=== PATIENT | female | born 1995 | race Caucasian/White ===

== ENCOUNTER 2020-05-14 19:12 | Inpatient (IN) | payer BC, OTHER ==
[~2020-05-14] VITALS: Ht 157.5 cm; Wt 85.4 kg
[2020-05-14] MEDS ORDERED: PENICILLIN G POTASSIUM IV 5 MU in D5W MINI-BAG PLUS 100 ML IV ONE (19:30)
[2020-05-14 20:25] LABS: HEMATOCRIT 36.1 % (36.0-47.0); HEMOGLOBIN 11.6 g/dl (12.0-15.5); MEAN CORPUSCULAR HEMOGLOBIN 30.7 pg (27.0-33.0); MEAN CORPUSCULAR HGB CONC 32.1 g/dl (32.0-36.5); MEAN CORPUSCULAR VOLUME 95.5 fl (80.0-96.0); PLATELET COUNT, AUTOMATED 294 10^3/uL (150-450); RED BLOOD COUNT 3.78 10^6/uL (4.00-5.40); WHITE BLOOD COUNT 14.5 10^3/uL (4.0-10.0)
[2020-05-14] MEDS ORDERED: OXYTOCIN DRIP 30 UNITS in IV 1 EA IV SCH (20:45)
[2020-05-14] MEDS ORDERED: OXYTOCIN 30 UNITS IN 0.9% NaCl 500ML IV BAG (J2590) As Ordered ONE (20:52)
[2020-05-14] MEDS: LR 1,000 ML IV SCH (21:02)
[2020-05-14] MEDS ORDERED: PRENTAB9 PO (21:22)
[2020-05-14] MEDS ORDERED: DICL10TA PO (21:23)
[2020-05-15] VITALS (84 sets, daily range): BP systolic 97–146; BP diastolic 54–100
[2020-05-15] MEDS ORDERED: FENTANYL 2MCG/ML ROPIVACAINE 0.2% IN 0.9% NACL 100ML IVBAG As Ordered ONE (00:19)
[2020-05-15] MEDS ORDERED: EPIDURAL/PCA KEYS XX PRN (01:10)
[2020-05-15] MEDS ORDERED: NALOXONE INJ 0.4MG/1ML VIAL (J2310 PER 1MG) IV PRN (01:10)
[2020-05-15] MEDS ORDERED: EPIDURAL COMMENT XX SCH (01:10)
[2020-05-15] MEDS ORDERED: ONDANSETRON 4MG/2ML VIAL IV PRN (01:10)
[2020-05-15] MEDS ORDERED: ePHEDrine SULFATE 25 MG/5 ML(5MG/ML) SYRINGE IV PRN (01:10)
[2020-05-15] MEDS: FENTANYL/ROPIVACAINE/NACL BAG 100 ML EPIDURAL SCH ×3 (01:10→21:10)
[2020-05-15] MEDS ORDERED: diphenhydrAMINE 50MG/ML VIAL (J1200) IV PRN (01:10)
[2020-05-15] MEDS ORDERED: REFRIGERATOR IV KEYS XX PRN (01:10)
[2020-05-15] MEDS ORDERED: LACTATED RINGER'S 1000 ML IV PRN (01:10)
[2020-05-15] MEDS: PENICILLIN G POTASSIUM IV 2.5 MU in IV 1 EA IV SCH ×5 (01:38→17:10)
[2020-05-15] MEDS: LR 1,000 ML IV SCH ×3 (07:18→15:38)
--- NOTE | 2020-05-15 08:46 | HPE ---
HISTORY AND PHYSICAL DATE OF ADMISSION: 05/14/2020 Chinedu is a 25-year-old, 1, para 0, 34-6/7 weeks, estimated date of confinement of 06/19/2020 by last menstrual period and confirmed by first trimester ultrasound. She presents to labor and delivery today via ambulance from [facility] as a maternal transfer due to premature rupture of membranes. She reports that her water broke at approximately 0600 hours and she presented to [facility] at about 1115 hours. She arrived at [facility] approximately at 1920 hours. She does report some scant bloody show, some mild cramping, and continued leakage, the fetus has been active. Her care was initiated at [facility]. Her care was initiated in the first trimester and has been uncomplicated until today's presentation. OBSTETRIC HISTORY: Primigravida. OBSTRETRIC LABORATORY DATA: A positive, antibody screen negative, syphilis negative, HIV negative, hepatitis B surface antigen negative, hepatitis C antibody nonreactive, gonorrhea and chlamydia negative. Gestational diabetic screening normal at 60. GBS is unknown. Toxoplasmosis negative. Urine drug screen negative. Pap abnormal low-grade squamous intraepithelial lesion. Panorama low risk for aneuploidy. Female fetus. PAST MEDICAL HISTORY: Abnormal pap smear. SURGERY: Left anterior cruciate ligament (ACL) repair times two. FAMILY HISTORY: Ovarian cancer, breast cancer, uterine cancer. SOCIAL HISTORY: The patient is , her is at bedside and supportive. She is a nonsmoker. She denies alcohol and drug use. Denies any history of sexually transmitted infections and denies history of abuse; physical, sexual, and emotional. ALLERGIES: No known drug allergies. CURRENT MEDICATIONS: - Diclegis OBJECTIVE: Temperature 98.3, pulse 83, respirations 18, blood pressure is 126/80. She is alert and oriented times three. She is in no apparent distress, she is smiling and talkative. Her abdomen is gravid. Cephalic presentation. Estimated weight 4 1/2 pounds. heart rate is 130 with moderate variability, positive accelerations, negative decelerations with an occasional contraction palpate mild. Sterile speculum exam: Grossly ruptured, positive nitrazine, positive fern. Sterile vaginal exam: 1 cm dilated, 70% effaced, ballotable station, a four bag of membranes is palpated, and scant bloody show with the exam. ASSESSMENT: Intrauterine at 34-6/7 weeks. heart rate is category 1. Pre-term premature rupture of membranes. PLAN: Per consult with Dr. Aris Sunshine, admit patient to labor and delivery, routine laboratories, start antibiotics for group B Streptococcus (GBS) prophylaxis, start IV Pitocin for labor induction. She has been administered one dose of betamethasone 12 mg at [facility] at approximately 1515 hours. I did review risks, benefits, and alternatives with the patient, all of her and her 's questions have been answered. She has been verbally consented for emergency surgery and blood products if they are necessary. I do anticipate labor and a spontaneous vaginal delivery.
--- NOTE | 2020-05-15 11:28 | IPNPDOC ---
Text Note Date of Service The patient was seen on 05/15/20. NOTE Intrapartum Note Chinedu is a 25yo with SIUP at 35wk admitted for PPROM, clear, at 0600 yesterday 05/14. I assumed her care at 0730 this morning. She was transferred to us from [place] for PPROM. When she presented there, she had positive testing for ROM and was 1/thick/high. She had repeat testing for ROM on arrival here yesterday evening and was positive, so was started on pitocin and at that point was 2/90/-2, ballottable. She received epidural, is currently comfortable. She has mostly had a Cat I FHRT, but did have a couple of shallow prolonged FHR decels around 0500 this morning that recovered with minimal intervention. Her PMhx is uncomplicated. Vitals wnl, afebrile SCE: 3/80/-2, forebag ruptured with a large amount of clear fluid noted and IUPC placed With rupture of forebag, there was a FHR decel down to 90 that recovered with repositioning. FSE placed. Plan to continue to closely observe Will titrate pitocin up to adequate MVUs as tolerated by the fetus Continue PCN per protocol for GBS unknown with PPROM Consider amnioinfusion if indicated Safe to proceed MD JOSE Rivas Fishbone I+Lesly [place] I+Stephen Laboratory Tests 05/14/20 20:00 Vital Signs Date Time Temp Pulse Resp B/P (MAP) Pulse Ox O2 Delivery O2 Flow Rate FiO2 05/15/20 08:38 64 115/68 (84) 05/15/20 07:08 97.7 16 Aimee Mabry MD May 15, 2020 11:28
--- NOTE | 2020-05-15 13:17 | IPNPDOC ---
Text Note Date of Service The patient was seen on 05/15/20. NOTE Intrapartum Note Pt doing well, feeling ctx small amount now. Vitals wnl, afebrile Intermittent Cat I-II FHRT for min to mod rashaad (currently Cat I), no accels, no decels [place]: ctx q2-4min SCE: /-2, head well applied to cervix now Plan to continue to titrate pitocin up to adequate MVUs Recheck in 4hr or earlier as indicated Closely monitor Safe to proceed Aimee Mabry MD VS,Lesly, I+O VSLesyl I+O Laboratory Tests 05/14/20 20:00 Vital Signs Date Time Temp Pulse Resp B/P (MAP) Pulse Ox O2 Delivery O2 Flow Rate FiO2 05/15/20 11:56 63 124/66 (85) 05/15/20 09:25 16 05/15/20 07:08 97.7 Aimee Mabry MD May 15, 2020 13:17
--- NOTE | 2020-05-15 18:09 | IPNPDOC ---
Text Note Date of Service The patient was seen on 05/15/20. NOTE Intrapartum Note Pt doing well, feeling strong urge to push. Pitocin at 14mu. Vitals wnl, afebrile Cat I-II FHRT with mod rashaad, no accels, occasional variable decels SCE: C/C/0, patient pushes well Will continue pushing Anticipate soon Safe to proceed Aimee Mabry MD VS,Lesly I+O VS, Lesly I+O Laboratory Tests 05/14/20 20:00 Vital Signs Date Time Temp Pulse Resp B/P (MAP) Pulse Ox O2 Delivery O2 Flow Rate FiO2 05/15/20 16:40 70 129/74 (92) 05/15/20 15:38 99.3 16 Aimee Mabry MD May 15, 2020 18:08
[2020-05-15 19:14] LABS: CORD GAS ABE V -5.7; CORD GAS HCO3 V 21.9 MEQ/L; CORD GAS O2 SAT V 65.6 %; CORD GAS PH V 7.25 UNITS; CORD GAS PO2 V 29.3 mmHg; CORD GAS SBC V 19.1 MEQ/L; CORD GAS TCO2 V 23.4 MEQ/L
[2020-05-15] MEDS ORDERED: OXYTOCIN DRIP 30 UNITS in IV 1 EA IV SCH (19:17)
[2020-05-15] MEDS ORDERED: METHYLERGONOVINE MALEATE 0.2 MG/ML VIAL (J2210) IM ONE (19:30)
[2020-05-15] MEDS ORDERED: MEASLES,MUMPS,RUBELLA VACCINE INJ (MMR-II) (90707) SC SCH (19:30)
[2020-05-15] MEDS ORDERED: BENZOCAINE 20% HEMORRHOIDAL OINTMENT 28GM TUBE TOP PRN (19:30)
[2020-05-15] MEDS ORDERED: RHOGAM 300 MCG (1500 IU) INJ (J2790) IM SCH (19:30)
[2020-05-15] MEDS ORDERED: ACETAMINOPHEN TAB 650MG DOSE (2X325MG) PO PRN (19:30)
[2020-05-15] MEDS ORDERED: IBUPROFEN 600MG TAB PO PRN (19:30)
[2020-05-15] MEDS ORDERED: ACETAMINOPHEN 500 MG TAB PO PRN (19:30)
[2020-05-15] MEDS ORDERED: IBUPROFEN 800 MG TAB PO PRN (19:30)
[2020-05-15] MEDS ORDERED: DOCUSATE SODIUM 100MG CAPSULE PO PRN (19:30)
[2020-05-15] MEDS ORDERED: ONDANSETRON 4MG/2ML VIAL IV ONE (20:15)
[2020-05-16] VITALS: BP 126/70
[2020-05-16] MEDS ORDERED: ISOVUE-370 76% 100ML VIAL As Ordered ONE (02:16)
--- NOTE | 2020-05-16 02:16 | IPNPDOC ---
Text Note Date of Service The patient was seen on 05/16/20. NOTE Evaluation for hypoxia I was called by nurse for patient's complaint of palpitations which lead her to do a set of vital signs, revealing hypoxia (pulse ox 84% in RA). Patient was started on 2L O2 by NC. She reported normal lung sounds and no other complaints from patient other than some nasal congestion. I ordered a Covid rapid test which was performed, and recently resulted negative. I came in to evaluate the patient and find her in bed, sitting up holding her baby, comfortable. She reports palpitations went away. No new complaints. No sensation of shortness of breath, no difficulty breathing, no chest pain, no fevers/chills. She reports lochia is normal and no issues with ambulation or urination. Vitals: pulse 68-99, bp 126/70, RR 18, temp 99.5F, O2 84% in RA and 93% on 2L NC General: sitting up in bed, comfortable Lungs: CTAB with NO wheezes/crackles/rales Cardiac: S1S2 present with no obvious murmurs Extremities: no edema of BLE EKG was performed which was abnormal "possible anterior infarct" A/P: incidental hypoxia requiring O2 by NC, abnormal EKG. Normal cardiac and lung exam. Concern for PE given patient's risk factors of elevated estrogen related to and stasis (in bed for 2 days during IOL for PPROM). -CTPA ordered STAT -continue O2 by NC to titrate pulse ox above 92% Aimee Mabry MD VS,Lesly, I+O VSLesly I+O Vital Signs Date Time Temp Pulse Resp B/P (MAP) Pulse Ox O2 Delivery O2 Flow Rate FiO2 05/16/20 01:30 93 Nasal Cannula 2.0 05/16/20 00:00 99.5 89 18 126/70 (88) I&O- Last 24 Hours up to 6 AM 05/16/20 06:00 Intake Total 3170 ml Output Total 3550 ml Balance -380 ml Aimee Mabry MD May 16, 2020 02:16
[2020-05-16 03:26] LABS: BLOOD UREA NITROGEN 7 MG/DL (7-18); GLOMERULAR FILTRATION RATE > 60.0 (>60)
--- NOTE | 2020-05-16 04:14 | REPVR ---
PROCEDURE INFORMATION: Exam: CT Angiography Chest With Contrast Exam date and time: 05/16/2020 1:56 AM Age: 25 years old Clinical indication: Shortness of breath; Additional info: 25yo F 05/15 hypoxia, abnormal ekg, risk factors TECHNIQUE: Imaging protocol: Computed tomographic angiography of the chest with intravenous contrast. 3D rendering (Not supervised by radiologist): MIP and/or 3D reconstructed images were created by the technologist. Radiation optimization: All CT scans at this facility use at least one of these dose optimization techniques: automated exposure control; mA and/or kV adjustment per patient size (includes targeted exams where dose is matched to clinical indication); or iterative reconstruction. Contrast material: ISO; Contrast volume: 75 ml; Contrast route: INTRAVENOUS (IV); COMPARISON: No relevant prior studies available. FINDINGS: Pulmonary arteries: The main pulmonary artery measures 27 mm. No pulmonary embolism is identified. Aorta: The ascending thoracic aorta measures 27 mm. Lungs: Bilateral pulmonary ground-glass infiltrates with areas of consolidation, left greater than right and greatest in the lower lobes. Coarse interstitium in the bases. Pleural space: Minimal bilateral pleural effusions, left greater than right. Heart: Unremarkable. No cardiomegaly. No pericardial effusion. Mediastinal space: There is soft tissue conforming to the anterior mediastinum consistent with residual thymic tissue. Lymph nodes: Unremarkable. No enlarged lymph nodes. Bones/joints: Unremarkable. No acute fracture. Soft tissues: Unremarkable. IMPRESSION: 1. Minimal bilateral pleural effusions, left greater than right with bilateral pulmonary infiltrates with areas of consolidation which are left greater than right and greatest in the lower lobes with bibasilar coarse interstitium consistent with pneumonia. 2. Otherwise negative CTA chest. No pulmonary embolism is identified. Electronically signed by: Alonso Cali On 05/16/2020 04:14:44 AM
[2020-05-16 06:00] VITALS: BP 126/83
--- NOTE | 2020-05-16 06:51 | IPNPDOC ---
Text Note Date of Service The patient was seen on 05/16/20. NOTE Update I consulted Medicine to evaluate Chinedu for her CTPA findings. No evidence of any pulmonary embolism, but there are bilateral ground glass infiltrates and small bilateral effusions. Despite Covid rapid test being negative, I am suspicious for Covid given the CTPA findings. Vital sign review shows 100.3F temp at 0600, which supports this. I have ordered respiratory panel as instructed by IM, nursing instructed to get a good sampling, and they will see her later this morning. Aimee Mabry MD VS,Lesly, I+O VS, Lesly I+O Laboratory Tests 05/16/20 02:47 Vital Signs Date Time Temp Pulse Resp B/P (MAP) Pulse Ox O2 Delivery O2 Flow Rate FiO2 05/16/20 06:00 100.3 69 18 126/83 (97) 90 Room Air 05/16/20 01:30 2.0 I&O- Last 24 Hours up to 6 AM 05/16/20 06:00 Intake Total 3170 ml Output Total 3550 ml Balance -380 ml Aimee Mabry MD May 16, 2020 06:51
[2020-05-16 08:29] LABS: BASO % 0.2 % (0.0-1.0); EOS % 0.1 % (0.0-3.0); HEMATOCRIT 31.5 % (36.0-47.0); HEMOGLOBIN 10.4 g/dl (12.0-15.5); LYMPH # 1.9 10^3/uL (1.5-5.0); LYMPH % 11.8 % (24.0-44.0); MEAN CORPUSCULAR HEMOGLOBIN 31.9 pg (27.0-33.0); MEAN CORPUSCULAR VOLUME 96.6 fl (80.0-96.0); MONO # 1.3 10^3/uL (0.0-0.8); MONO % 8.1 % (0.0-5.0); NEUTROPHILS # 12.9 10^3/uL (1.5-8.5); NEUTROPHILS % 78.9 % (36.0-66.0); PLATELET COUNT, AUTOMATED 227 10^3/uL (150-450); RED BLOOD COUNT 3.26 10^6/uL (4.00-5.40); WHITE BLOOD COUNT 16.3 10^3/uL (4.0-10.0)
[2020-05-16 08:40] LABS: INR 0.93; PROTHROMBIN TIME 12.7 SECONDS (12.5-14.3)
[2020-05-16 08:41] LABS: FIBRINOGEN 436 MG/DL (221-452); PARTIAL THROMBOPLASTIN TIME 27.8 SECONDS (24.2-38.5)
[2020-05-16 08:45] LABS: ALBUMIN 1.8 GM/DL (3.2-5.2); ALT/SGPT 16 U/L (12-78); BILIRUBIN,TOTAL 0.4 MG/DL (0.2-1.0); BLOOD UREA NITROGEN 8 MG/DL (7-18); C REACTIVE PROTEIN QUANTITATIV 9.55 MG/DL (0.00-0.30); CALCIUM LEVEL 8.2 MG/DL (8.5-10.1); CARBON DIOXIDE LEVEL 23 MEQ/L (21-32); CHLORIDE LEVEL 110 MEQ/L (98-107); CREATININE FOR GFR 0.89 MG/DL (0.55-1.30); FERRITIN 64 NG/ML (8-252); GLOMERULAR FILTRATION RATE > 60.0 (>60); GLUCOSE, FASTING 84 MG/DL (70-100); LDH LACTATE DEHYDROGENASE 299 U/L (84-246); MAGNESIUM LEVEL 1.7 MG/DL (1.8-2.4); NT-PRO BNP 3071 PG/ML (<125); POTASSIUM SERUM 3.6 MEQ/L (3.5-5.1); SODIUM LEVEL 142 MEQ/L (136-145); TOTAL PROTEIN 4.7 GM/DL (6.4-8.2); TROPONIN I 0.98 NG/ML (< 0.10)
[2020-05-16] MEDS ORDERED: PRENATAL VITAMINS CHEWABLE TABLET PO SCH (09:00)
[2020-05-16] MEDS ORDERED: HEPARIN DRIP 25,000 UNITS in IV 1 EA IV SCH (09:21)
[2020-05-16] MEDS ORDERED: HEPARIN SOD (PORCINE) 5000UNITS/ML 1ML VIAL/SYRINGE IV PRN (09:30)
[2020-05-16] MEDS ORDERED: FUROSEMIDE 20MG/2ML VIAL (J1940) IV ONE (09:30)
[2020-05-16] MEDS ORDERED: HEPARIN SOD (PORCINE) 5000UNITS/ML 1ML VIAL/SYRINGE IV ONE (09:30)
--- NOTE | 2020-05-16 09:35 | DN ---
DELIVERY NOTE DATE OF DELIVERY: 05/15/2020 PREDELIVERY DIAGNOSIS: 35 weeks, 0 days gestation in labor. POSTDELIVERY DIAGNOSIS: Delivered. PROCEDURE: Spontaneous vaginal delivery. DOMESTIC TECHNICIAN: Aimee Mabry MD ANESTHESIA: Epidural. ESTIMATED BLOOD LOSS: 350 mL. FINDINGS: 5 pound 0 ounce (2270 gm) female infant, score 9/9. DESCRIPTION OF DELIVERY: Chinedu is a 25-year-old G1, now P0,1,0,1 status post uncomplicated at 35 weeks 0 days after having PPROM, clear at 0600 the day before, delivering at 1837 on 05/15/2020. She presented at 1, thick, high, had Pitocin augmentation, received epidural and progressed to complete/complete/0 at which point she began pushing. There was good maternal effort; head delivered OA, restituted SIOMARA. Right anterior shoulder delivered followed by posterior shoulder and corpus. Infant was placed on maternal abdomen, vigorous, Apgars 9/9. Nose and mouth suctioned with bulb suction. After two minutes, cord clamped x2 and cut. Cord gases collected for prematurity: PH venous 7.25, base excess -5.7 (pH arterial cord gas leaked on the way to the lab and not enough specimen was present to get a result). With fundal massage and traction on the cord, placenta delivered spontaneously and intact with three vessel centrally inserted cord. More uterine massage was performed, IV Pitocin bolus given, fundus firmed to U-2 cm. Hemostasis noted. Inspection of perineum and vagina revealed no lacerations. With fundal massage, trickle of blood noted so sweep was done of the lower uterine segment which was productive of a small amount of clot. More uterine massage was performed and 0.2 mg of I.M. Methergine were given, after which bleeding ceased and fundus remained firm at U-2 cm. all counts correct x2. Mom and were doing well when I left the room.
[2020-05-16] MEDS ORDERED: AZITHROMYCIN INJ 500 MG, VIAL MATE ADAPTER 1 EACH in D5W 250 ML IV SCH (10:00)
[2020-05-16 10:04] LABS: D-DIMER QUANT > 4000 ng/ml (<500)
--- NOTE | 2020-05-16 10:07 | CR.PDOC ---
General Date of Consultation: May 16, 2020 Consultation REASON FOR CONSULTATION/CHIEF COMPLAINT: dyspnea, hypoxia HISTORY OF PRESENT ILLNESS: 25 yo F gravid at 34-6/7 weeks transferred from [facility] for PPROM, and delivered on 05/15/20. Hospitalist was consulted for hypoxia to 88% on RA, patient required 2L NC to maintain sa turations. CTA Chest showed no PE, but findings of ground glass opacicites as well as suspicion for PNA. COVID test was negative x 2, RVP panel pending (24 hrs since 1st test). Patient reports mild SOB, and productive cough, associated with L sided pressure like johann. Cough is productive of blood tinged sputum. She states that she is generally healthy, takes no medications apart from vitamins. She does not smoke. Has no personal or family hx of CAD. EKG noted to have t wave inversions in anterolateral leads. Labs reviewed. Trop 0.98. BNP > 3000. Management of suspected new onset CHF, NSTEMI and CAP to be managed by hospitalist service. ALLERGIES: Please see below. HOME MEDICATIONS: Please see below. PAST MEDICAL HISTORY: no pertinent hx PAST SURGICAL HISTORY: no pertinent surgical hx FAMILY HISTORY: Mother: DM2, breast ca. SOCIAL HISTORY: non smoker non drinker no illicit drug use REVIEW OF SYSTEMS: CONSTITUTIONAL: chills HEENT: patient denies blurred vision, loss of vision, headache,. CARDIOVASCULAR pressure like chest pain when coughing RESPIRATORY: reports shortness of breath, cough, hemoptysis. GASTROINTESTINAL: mild abdo pain s/p delivery, n/v/d, blood in stool. GENITOURINARY: patient denies dysuria, discharge. SKIN: patient denies rashes. MUSCULOSKELETAL: patient denies joint pain, neck pain. NEUROLOGICAL: patient denies focal weakness, numbness, seizures. PSYCHIATRIC: patient denies SI/HI. ENDOCRINE: patient denies polyuria, heat intolerance, cold intolerance. HEMATOLOGIC/LYMPHATIC: patient denies easy bruising. PHYSICAL EXAMINATION: VITAL SIGNS: Please see below. GENERAL APPEARANCE: not in acute distress, calm, comfortable in bed HEENT: PERRLA, EOMI, moist mucous membranes. RESPIRATORY: crackles in bilateral lung bases, L>R CARDIOVASCULAR: RRR, normal S1, S2, no murmurs or gallops. ABDOMEN: soft, distended (post gravid), midly tender, no rebound tenderness, no guarding. EXTREMITIES: 2+ non pitting edema bilaterally, non cyanotic NEUROLOGICAL: no focal neuro deficits, CN2-12 intact. PSYCHIATRIC: pleasant, cooperative, AAO x 3. LABORATORY DATA: Please see below. ASSESSMENT/PLAN: Patient developed hypoxia after delivery down to 88%. Required 2 L of nasal cannula oxygen to maintain saturations. She was febrile, with elevated WBC. CT angiography of the chest was performed to rule out pulmonary embolism given hypercoagulability during as well as mobility for the past [address] did not show any pulmonary embolism, however, did show some ground glass opacities as well as opacification in the bilateral lower lobes, worse in the left than the right., consistent with pneumonia. There was concern for coronavirus infection, however, patient has had 3 negative Covid tests within the past 24 hours. Hospitalist service was consulted for further management. Reviewed EKG strip showing T-wave inversions in anterolateral leads. Serum troponin level came back elevated at 0.98. BNP was above 3000. Physical findings showed bilateral lower extremity nonpitting edema as well as shortness of breath. The patient did have crackles on examination, left worse than right. Given troponin elevation, NSTEMI is a primary concern. 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 #Elevated troponin: Top 0.98. EKG showing T wave inversions in anterolateral leads. QTC 397. BNP 3000. Lower extremity edema. D/w Dr. Parmar. 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 Possible NSTEMI vs Type II ID. It is my clinical judgment that management assuming ACS (NSTEMI) is a priority at this time. ASA 325 mg. Plavix 300 mg. Heparin ggt ordered. 40 mg lasix IV once. Stat ECHO ordered. Repeat EKG. Trend trop. Urgent transfer to tertiary level of care. Called [facility], no capacity. Spoke to [facility] at 0930 am, will prioritize transfer, will call back if bed available. Face sheet faxed. Discussed with Dr. Sunshine, primary OBGYN service. No contraindication for heparin drip from OB perspective. Discussed with patient and at bedside. Agree with transfer. #Hypoxia: desat to 88%. requires 2L NC. post- CTA/PE - no PE, shows ground glass opacity, bilateral (L>R) opacities c/w pneumonia. Covid negative x 3 (last on 05/16/20 am). No hx of travel, no visitors at home. Lives at home. #CAP: seen on CTA chest. Febrile. WBC elevated, trending up. Cough, productive of blood tinged sputum. Ceftriaxone 2 g Q24H. Azithromycin 500 mg IV daily. #PROM s/p delivery: s/p PROM. delivered on 05/15. management per primary OBGYN service. DVT ppx: started on heparin ggt. Vital Signs/I&O Vital Signs Date Time Temp Pulse Resp B/P (MAP) Pulse Ox O2 Delivery O2 Flow Rate FiO2 05/16/20 06:00 100.3 69 18 126/83 (97) 90 Room Air 05/16/20 01:30 2.0 I&O- Last 24 Hours up to 6 AM 05/16/20 06:00 Intake Total 3170 ml Output Total 3550 ml Balance -380 ml Laboratory Data Labs 24H Laboratory Tests 2 05/15/20 18:26: Serology Scanned Report Hepatitis B Testing 05/15/20 18:45: Cord Venous Blood pH 7.250, Cord Venous Blood PCO2 51.0, Cord Venous Blood PO2 29.3, Cord Venous Blood HCO3 21.9, Cord Venous Blood Total CO2 23.4, Cord Venous Base Excess (Actual) -5.7, Cord Venous Base Excess (Standard) 19.1, Cord Venous Blood Oxygen Saturation 65.6 05/16/20 00:29: Coronavirus (COVID-19)(PCR) NEGATIVE 05/16/20 02:47: Glomerular Filtration Rate > 60.0 05/16/20 07:56: Immature Granulocyte % (Auto) 0.9, Neutrophils (%) (Auto) 78.9H, Lymphocytes (%) (Auto) 11.8L, Monocytes (%) (Auto) 8.1H, Eosinophils (%) (Auto) 0.1, Basophils (%) (Auto) 0.2, Neutrophils # (Auto) 12.9H, Lymphocytes # (Auto) 1.9, Monocytes # (Auto) 1.3H, Eosinophils # (Auto) 0.0, Basophils # (Auto) 0.0, Nucleated Red Blood Cells % (auto) 0.0, Prothrombin Time 12.7, Prothromb Time International Ratio 0.93, Activated Partial Thromboplast Time 27.8, Fibrinogen 436, Anion Gap 9, Glomerular Filtration Rate > 60.0, Calcium Level 8.2L, Magnesium Level 1.7L, Ferritin 64, Total Bilirubin 0.4, Aspartate Amino Transf (AST/SGOT) 35, Alanine Aminotransferase (ALT/SGPT) 16, Alkaline Phosphatase 104, Lactate Dehydrogenase 299H, Troponin I 0.98H, C-Reactive Protein, Quantitative 9.55H, CO-Psl-Y-Type Natriuretic Peptide 3071H, Total Protein 4.7L, Albumin 1.8L, Albumin/Globulin Ratio 0.6L CBC/BMP Laboratory Tests 05/16/20 02:47 05/16/20 07:56 Microbiology Microbiology 05/16/20 Blood Culture, Received Pending 05/16/20 Blood Culture, Received Pending 05/16/20 Respiratory Virus Panel (PCR) ([facility]) - Final, Complete Allergies Coded Allergies: No Known Allergies (Unverified , 05/14/20) Home Medications Scheduled Aspirin (Aspirin) 81 Mg Tab.chew, 1 TAB PO DAILY for pain for 30 Days, #30 Azithromycin (Zithromax) 500 Mg Vial, 500 MG IV DAILY for 5 Days Ceftriaxone in Is-Osm Dextrose (Ceftriaxone 2 gm-D5w Bag) 2 Gm/50 Ml Piggyback, 1 INJ IV DAILY for 5 Days Clopidogrel Bisulfate (Plavix) 75 Mg Tablet, 1 TAB PO DAILY for 30 Days, #30 Doxylamine Succinate/Vit B6 (Diclegis Dr 10-10 mg Tablet) 1 Each Tablet.dr, 2 TAB PO QPM for 24 Days, #48 (Reported) Heparin Sodium,Porcine/D5w (Heparin 25,000 Unit/250 ml-D5w) 25,000 Unit/250 Ml Iv.soln, 1 INJ IV cont for 1 Days Scheduled PRN Acetaminophen (Acetaminophen) 325 Mg Tablet, 650 MG PO Q4HP PRN for PAIN LEVEL 1-5 for 7 Days, #30 HARI COLLINS MD May 16, 2020 10:07
[2020-05-16] MEDS ORDERED: FUROSEMIDE 40MG/4ML VIAL (J1940) IV ONE (10:30)
[2020-05-16] MEDS ORDERED: cefTRIAXone SOD 2 GM in D5W MINI-BAG PLUS 50 ML IV SCH (11:00)
--- NOTE | 2020-05-16 11:06 | DS.PDOC ---
Discharge Summary General Date of Admission May 14, 2020 at 19:25 Date of Discharge 05/16/20 Discharge Summary PROCEDURES PERFORMED DURING STAY: [None]. ADMITTING DIAGNOSES: Pre-term premature rupture of membranes DISCHARGE DIAGNOSES: NSTEMI Peripartum cardiomyopathy NSTEMI Community Acquired Pneumonia COMPLICATIONS/CHIEF COMPLAINT: PROM. HISTORY OF PRESENT ILLNESS: Chinedu is a 25-year-old, 1, para 0, 34-6/7 weeks, estimated date of confinement of 06/19/2020 by last menstrual period and confirmed by first trimester ultrasound. She presents to labor and delivery today via ambulance from [facility] as a maternal transfer due to premature rupture of membranes. She reports that her water broke at approximately 0600 hours and she presented to [facility] at about 1115 hours. She arrived at [facility] approximately at 1920 hours. She does report some scant bloody show, some mild cramping, and continued leakage, the fetus has been active. Her care was initiated at [facility]. Her care was initiated in the first trimester and has been uncomplicated until today's presentation. HOSPITAL COURSE: Patient developed hypoxia after delivery down to 88%. Required 2 L of nasal cannula oxygen to maintain saturations. She was febrile, with elevated WBC. CT angiography of the chest was performed to rule out pulmonary embolism given hypercoagulability during as well as mobility for the past [address] did not show any pulmonary embolism, however, did show some ground glass opacities as well as opacification in the bilateral lower lobes, worse in the left than the right., consistent with pneumonia. There was concern for coronavirus infection, however, patient has had 3 negative Covid tests within the past 24 hours. Hospitalist service was consulted for further management. Reviewed EKG strip showing T-wave inversions in anterolateral leads. Serum troponin level came back elevated at 0.98. BNP was above 3000. Physical findings showed bilateral lower extremity nonpitting edema as well as shortness of breath. The patient did have crackles on examination, left worse than right. Given troponin elevation, NSTEMI is a primary concern. 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 Patient was given aspirin and Plavix as well as heparin infusion, along with 40 mg of IV lasix. Stat ECHO was performed and imaging was attached to patient's DC package. [facility] was c onsulted and the patient was accepted for transfer by primary cardiology service. I discussed the treatment plan with the family and with her primary OB provider, Dr. Jean. The family is in agreement with transfer. The will be kept at the hospital under the care of her father. The patient will be transferred to [facility]. All parties are in agreement. #Elevated troponin: Top 0.98. EKG showing T wave inversions in anterolateral leads. QTC 397. BNP 3000. Lower extremity edema. D/w Dr. Parmar. 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 Possible NSTEMI vs Type II AL. It is my clinical judgment that management assuming ACS (NSTEMI) is a priority at this time. ASA 325 mg. Plavix 300 mg. Heparin ggt ordered. 40 mg lasix IV once. Stat ECHO ordered. Repeat EKG. Trend trop. Urgent transfer to tertiary level of care. Face sheet faxed. Discussed with Dr. Sunshine, primary OBGYN service. Discussed with patient and at bedside. Agree with transfer. #Hypoxia: desat to 88%. requires 2L NC. pos- CTA/PE - no PE, shows ground glass opacity, bilateral (L>R) opacities c/w pneumonia. Covid negative x 3 (last on 05/16/20). No hx of travel, no visitors at home. Lives at home. #CAP: seen on CTA chest. Febrile. WBC elevated, trending up. Cough, productive of blood tinged sputum. Ceftriaxone 2 g Q24H. Azithromycin 500 mg IV daily. #PROM s/p delivery: s/p PROM. delivered on 05/15. management per primary OBGYN service. DISCHARGE MEDICATIONS: Please see below. ALLERGIES: Please see below. PHYSICAL EXAMINATION ON DISCHARGE: VITAL SIGNS: please see below General: NAD, comfortable, although short of breath HEENT: PERRLA, EOMI, sclerae clear Neck: supple, normal ROM, no JVD Respiratory: Crackles heard in bilateral lung bases, left worse than right. CVS: RRR, normal S1, S2, no murmurs Abdo: soft, no masses, no hepatosplenomegaly, BS+, no rebound tenderness Extremities: 2+ bilateral nonpitting edema. No cyanosis. MSK: no joint deformities, normal ROM Neuro: no focal neuro deficits, moving all 4 extremities, CN2-12 intact. Strength 5/5 in all 4 extremities. No nystagmus. Psych: calm, cooperative, AAO x 3 LABORATORY DATA: Please see below. IMAGING: CTA/PE (05/16/20) FINDINGS: Pulmonary arteries: The main pulmonary artery measures 27 mm. No pulmonary embolism is identified. Aorta: The ascending thoracic aorta measures 27 mm. Lungs: Bilateral pulmonary ground-glass infiltrates with areas of consolidation, left greater than right and greatest in the lower lobes. Coarse interstitium in the bases. Pleural space: Minimal bilateral pleural effusions, left greater than right. Heart: Unremarkable. No cardiomegaly. No pericardial effusion. Mediastinal space: There is soft tissue conforming to the anterior mediastinum consistent with residual thymic tissue. Lymph nodes: Unremarkable. No enlarged lymph nodes. Bones/joints: Unremarkable. No acute fracture. Soft tissues: Unremarkable. IMPRESSION: 1. Minimal bilateral pleural effusions, left greater than right with bilateral pulmonary infiltrates with areas of consolidation which are left greater than right and greatest in the lower lobes with bibasilar coarse interstitium consistent with pneumonia. 2. Otherwise negative CTA chest. No pulmonary embolism is identified. PROGNOSIS: good ACTIVITY: [As tolerated]. DIET NPO DISCHARGE PLAN:Transfer to [facility] for cardiology evaluation. DISCHARGE INSTRUCTIONS: Transfer to [facility]. As concern for NSTEMI: ASA/plavix. Heparin GGT. Please continue ceftriaxone and azithromycin for CAP ITEMS TO FOLLOWUP ON ON OUTPATIENT: Follow up on blood cultures, atypical pneumonia antigens, sputum cultures. DISCHARGE CONDITION: [Stable]. TIME SPENT ON DISCHARGE: 35 minutes Vital Signs/I&Os Vital Signs Date Time Temp Pulse Resp B/P (MAP) Pulse Ox O2 Delivery O2 Flow Rate FiO2 05/16/20 06:00 100.3 69 18 126/83 (97) 90 Room Air 05/16/20 01:30 2.0 I&O- Last 24 Hours up to 6 AM 05/16/20 06:00 Intake Total 3170 ml Output Total 3550 ml Balance -380 ml Laboratory Data Labs 24H Laboratory Tests 2 05/15/20 18:26: Serology Scanned Report Hepatitis B Testing 05/15/20 18:45: Cord Venous Blood pH 7.250, Cord Venous Blood PCO2 51.0, Cord Venous Blood PO2 29.3, Cord Venous Blood HCO3 21.9, Cord Venous Blood Total CO2 23.4, Cord Venous Base Excess (Actual) -5.7, Cord Venous Base Excess (Standard) 19.1, Cord Venous Blood Oxygen Saturation 65.6 05/16/20 00:29: Coronavirus (COVID-19)(PCR) NEGATIVE 05/16/20 02:47: Glomerular Filtration Rate > 60.0 05/16/20 07:56: Immature Granulocyte % (Auto) 0.9, Neutrophils (%) (Auto) 78.9H, Lymphocytes (%) (Auto) 11.8L, Monocytes (%) (Auto) 8.1H, Eosinophils (%) (Auto) 0.1, Basophils (%) (Auto) 0.2, Neutrophils # (Auto) 12.9H, Lymphocytes # (Auto) 1.9, Monocytes # (Auto) 1.3H, Eosinophils # (Auto) 0.0, Basophils # (Auto) 0.0, Nucleated Red Blood Cells % (auto) 0.0, Prothrombin Time 12.7, Prothromb Time International Ratio 0.93, Activated Partial Thromboplast Time 27.8, Fibrinogen 436, D-Dimer, Quantitative > 4000H, Anion Gap 9, Glomerular Filtration Rate > 60.0, Calcium Level 8.2L, Magnesium Level 1.7L, Ferritin 64, Total Bilirubin 0.4, Aspartate Amino Transf (AST/SGOT) 35, Alanine Aminotransferase (ALT/SGPT) 16, Alkaline Phosphatase 104, Lactate Dehydrogenase 299H, Troponin I 0.98H, C-Reactive Protein, Quantitative 9.55H, NQ-Ncy-P-Type Natriuretic Peptide 3071H, Total Protein 4.7L, Albumin 1.8L, Albumin/Globulin Ratio 0.6L CBC/BMP Laboratory Tests 05/16/20 02:47 05/16/20 07:56 Microbiology Microbiology 05/16/20 Blood Culture, Received Pending 05/16/20 Blood Culture, Received Pending 05/16/20 Respiratory Virus Panel (PCR) (YAN) - Final, Complete Discharge Medications Scheduled Doxylamine Succinate/Vit B6 (Diclegis 10-10 mg Tablet) 1 Each Tablet.dr, 2 TAB PO QPM, (Reported) No.137/Iron/Folic Acd ( Vitamin Tablet) 1 Each Tablet, 1 TAB PO DAILY, (Reported) Allergies Coded Allergies: No Known Allergies (Unverified , 05/14/20) HARI COLLINS MD May 16, 2020 11:06
[2020-05-16 12:27] VITALS: BP 116/64
[2020-05-16] MEDS ORDERED: ACET1TAB55 PO (12:46)
[2020-05-16] MEDS ORDERED: ASPI81CH33 PO (12:46)
[2020-05-16] MEDS ORDERED: CEFT2INJ4 IV (12:46)
[2020-05-16] MEDS ORDERED: PLAV1TAB2 PO (12:46)
[2020-05-16] MEDS ORDERED: [UNRECOGNIZED DRUG - CODE] IV (12:46)
[2020-05-16] MEDS ORDERED: HEPA1INJ81 IV (12:46)
--- NOTE | 2020-05-17 23:02 | ECGEPIP ---
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
--- NOTE | 2020-05-17 23:05 | ECGEPIP ---
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
[2020-05-18 14:11] LABS: CHLAMYDIA PNEUMONIAE IgG <1:16 (Neg:<1:16); CHLAMYDIA PNEUMONIAE IgM <1:10 (Neg:<1:10); MYCOPLASMA PNEUMONIAE IgG <100 U/mL (0-99); MYCOPLASMA PNEUMONIAE IgM <770 U/mL (0-769)
== END 2020-05-16 13:05 | disposition short-term general hospital (02) | DRG 560 ==
LOC: M LDO 19:12 → M LDI 19:25 → M OBS 05-15 21:01
PROVIDERS: ADMIT Advanced Practice Midwife; ATTEND Obstetrics & Gynecology
PROC: 10E0XZZ Delivery of Products of Conception, External Approach (ICD-10-PCS; principal; 2020-05-15)
DX: O42.013 Preterm premature rupture of membranes, onset of labor within 24 hours of rupture, third trimester (principal); I21.4 Non-ST elevation (NSTEMI) myocardial infarction; J18.9 Pneumonia, unspecified organism; O90.3 Peripartum cardiomyopathy; O99.52 Diseases of the respiratory system complicating childbirth; Z3A.34 34 weeks gestation of pregnancy; Z20.828 Contact with and (suspected) exposure to other viral communicable diseases; Z37.0 Single live birth

== ENCOUNTER 2020-07-11 16:34 | Emergency (ER) | payer BC, OTHER ==
[~2020-07-11] VITALS: Ht 157.5 cm; Wt 76.7 kg
[~2020-07-11 16:34] MED LIST: ACET1TAB55 PO; ASPI81CH33 PO; CEFT2INJ4 IV; DICL10TA PO; HEPA1INJ81 IV; PLAV1TAB2 PO; PRENTAB9 PO; [UNRECOGNIZED DRUG - CODE] IV
[2020-07-11 16:35] VITALS: BP 122/65
[2020-07-11] MEDS ORDERED: KETOROLAC TROMETHAMINE 10 MG TAB PO ONE (17:00)
--- OUTSIDE RECORDS SUMMARY | 2020-07-11 17:11 | CCD ---
Author Author [facility] Organization [facility] Address Unknown Phone Unavailable Care Team Providers Care Picker Name Role Phone Mireya, L She PA Unavailable Unavailable Mireya, L She PA Unavailable Unavailable Mireya, L She PA Unavailable Unavailable Mireya, L She PA Unavailable Unavailable Mireya, L She PA Unavailable Unavailable Mireya, L She PA Unavailable Unavailable Mireya, L She PA Unavailable Unavailable Mireya, L She PA Unavailable Unavailable Mireya, L She PA Unavailable Unavailable Mireya, L She PA Unavailable Unavailable Mireya, L She PA Unavailable Unavailable Mireya, L She PA Unavailable Unavailable Mireya, L She PA Unavailable Unavailable Mireya, L She PA Unavailable Unavailable Mireya, L She PA Unavailable Unavailable Mireya, L She PA Unavailable Unavailable Mireya, L She PA Unavailable Unavailable Mireya, L She PA Unavailable Unavailable Mireya, L She PA Unavailable Unavailable Mireya, L She PA Unavailable Unavailable Mireya, L She PA Unavailable Unavailable Mireya, L She PA Unavailable Unavailable Mireya, L She PA Unavailable Unavailable Mireya, L She PA Unavailable Unavailable Mireya, L She PA Unavailable Unavailable Mireya, L She PA Unavailable Unavailable Mireya, L She PA Unavailable Unavailable Mireya, L She PA Unavailable Unavailable Mireya, L She PA Unavailable Unavailable Mireya, L She PA Unavailable Unavailable Mireya, L She PA Unavailable Unavailable Mireya, L She PA Unavailable Unavailable Mireya, L She PA Unavailable Unavailable Mireya, L She PA Unavailable Unavailable ANTECOL, Mile BERNAL MD Unavailable Unavailable ANTECOL, Mile BERNAL MD Unavailable Unavailable ANTECOL, Mile BERNAL MD Unavailable Unavailable ANTECOL, Mile BERNAL MD Unavailable Unavailable ANTECOL, Mile BERNAL MD Unavailable Unavailable ANTECOL, Mile BERNAL MD Unavailable Unavailable ANTECOL, Mile BERNAL MD Unavailable Unavailable ANTECOL, Mile BERNAL MD Unavailable Unavailable ANTECOL, Mile BERNAL MD Unavailable Unavailable ANTECOL, Mile BERNAL MD Unavailable Unavailable ANTECOL, Mile BERNAL MD Unavailable Unavailable ANTECOL, Mile BERNAL MD Unavailable Unavailable ANTECOL, Mile BERNAL MD Unavailable Unavailable ANTECOL, Mile BERNAL MD Unavailable Unavailable ANTECOL, Mile BERNAL MD Unavailable Unavailable ANTECOL, Mile BERNAL MD Unavailable Unavailable ANTECOL, Mile BERNAL MD Unavailable Unavailable ANTECOL, Mile BERNAL MD Unavailable Unavailable ANTECOL, Mile BERNAL MD Unavailable Unavailable ANTECOL, Mile BERNAL MD Unavailable Unavailable ANTECOL, Mile BERNAL MD Unavailable Unavailable ANTECOL, Mile BERNAL MD Unavailable Unavailable ANTECOL, Mile BERNAL MD Unavailable Unavailable ANTECOL, Mile BERNAL MD Unavailable Unavailable ANTECOL, Mile BERNAL MD Unavailable Unavailable ANTECOL, Mile BERNAL MD Unavailable Unavailable ANTECOL, Mile BERNAL MD Unavailable Unavailable ANTECOL, Mile BERNAL MD Unavailable Unavailable ANTECOL, Mile BERNAL MD Unavailable Unavailable ANTECOL, Mile BERNAL MD Unavailable Unavailable ANTECOL, Mile BERNAL MD Unavailable Unavailable ANTECOL, Mile BERNAL MD Unavailable Unavailable ANTECOL, Mile BERNAL MD Unavailable Unavailable ANTECOL, Mile BERNAL MD Unavailable Unavailable ANTECOL, Mile BERNAL MD Unavailable Unavailable ANTECOL, Mile BERNAL MD Unavailable Unavailable ANTECOL, Mile BERNAL MD Unavailable Unavailable ANTECOL, Mile BERNAL MD Unavailable Unavailable ANTECOL, Mile BERNAL MD Unavailable Unavailable ANTECOL, Mile BERNAL MD Unavailable Unavailable ANTECOL, Mile BERNAL MD Unavailable Unavailable ANTECOL, Mile BERNAL MD Unavailable Unavailable ANTECOL, Mile BERNAL MD Unavailable Unavailable ANTECOL, Mile BERNAL MD Unavailable Unavailable ANTECOL, Mile BERNAL MD Unavailable Unavailable ANTECOL, Mile BERNAL MD Unavailable Unavailable ANTECOL, Mile BERNAL MD Unavailable Unavailable ANTECOL, Mile BERNAL MD Unavailable Unavailable ANTECOL, Mile BERNAL MD Unavailable Unavailable ANTECOL, Mile BERNAL MD Unavailable Unavailable ANTECOL, Mile BERNAL MD Unavailable Unavailable ANTECOL, Mile BERNAL MD Unavailable Unavailable ANTECOL, Mile BERNAL MD Unavailable Unavailable ANTECOL, Mile BERNAL MD Unavailable Unavailable ANTECOL, Mile BERNAL MD Unavailable Unavailable POLNIAK, DAISHA CORK GRINDER Unavailable Unavailable POLNIAK, DAISHA CORK GRINDER Unavailable Unavailable POLNIAK, DAISHA CORK GRINDER Unavailable Unavailable POLNIAK, DAISHA CORK GRINDER Unavailable Unavailable POLNIAK, DAISHA CORK GRINDER Unavailable Unavailable POLNIAK, DAISHA CORK GRINDER Unavailable Unavailable POLNIAK, DAISHA CORK GRINDER Unavailable Unavailable POLNIAK, DAISHA CORK GRINDER Unavailable Unavailable POLNIAK, DAISHA CORK GRINDER Unavailable Unavailable POLNIAK, DAISHA CORK GRINDER Unavailable Unavailable POLNIAK, DAISHA CORK GRINDER Unavailable Unavailable POLNIAK, DAISHA CORK GRINDER Unavailable Unavailable POLNIAK, DAISHA CORK GRINDER Unavailable Unavailable POLNIAK, DAISHA CORK GRINDER Unavailable Unavailable POLNIAK, DAISHA CORK GRINDER Unavailable Unavailable POLNIAK, DAISHA CORK GRINDER Unavailable Unavailable Daisha E Polniak, WHNP Unavailable Unavailable Abdias Dodd MD Unavailable [phone] Abdias Dodd MD Unavailable [phone] Abdias Dodd MD Unavailable [phone] Abdias Dodd MD Unavailable [phone] Abdias Dodd MD Unavailable [phone] Abdias Dodd MD Unavailable [phone] Abdias Dodd MD Unavailable [phone] KAYLYNN, A CHICA PA Unavailable Unavailable KAYLYNN, A CHICA PA Unavailable Unavailable KAYLYNN, A CHICA PA Unavailable Unavailable KAYLYNN, A CHICA PA Unavailable Unavailable KAYLYNN, A CHICA PA Unavailable Unavailable KAYLYNN, A CHICA PA Unavailable Unavailable KAYLYNN, A CHICA PA Unavailable Unavailable KAYLYNN, A CHICA PA Unavailable Unavailable KAYLYNN, A CHICA PA Unavailable Unavailable KAYLYNN, A CHICA PA Unavailable Unavailable KAYLYNN, A CHICA PA Unavailable Unavailable KAYLYNN, A CHICA PA Unavailable Unavailable KAYLYNN, A CHICA PA Unavailable Unavailable Abdias Dodd MD Unavailable Unavailable Hadian, Ubaldo Unavailable Unavailable Hadian, Ubaldo Unavailable Unavailable Hadian, Ubaldo Unavailable Unavailable Hadian, Ubaldo Unavailable Unavailable Hadian, Ubaldo Unavailable Unavailable Hadian, Ubaldo Unavailable Unavailable Hadian, Ubaldo Unavailable Unavailable Hadian, Ubaldo Unavailable Unavailable Hadian, Ubaldo Unavailable Unavailable Hadian, Ubaldo Unavailable Unavailable Hadian, Ubaldo Unavailable Unavailable Hadian, Ubaldo Unavailable Unavailable Hadian, Ubaldo Unavailable Unavailable Hadian, Ubaldo Unavailable Unavailable Hadian, Ubaldo Unavailable Unavailable Hadian, Ubaldo Unavailable Unavailable Hadian, Ubaldo Unavailable Unavailable Hadian, Ubaldo Unavailable Unavailable Hadian, Ubaldo Unavailable Unavailable Hadian, Ubaldo Unavailable Unavailable Hadian, Ubaldo Unavailable Unavailable Hadian, Ubaldo Unavailable Unavailable Hadian, Ubaldo Unavailable Unavailable Hadian, Ubaldo Unavailable Unavailable Hadian, Ubaldo Unavailable Unavailable Hadian, Ubaldo Unavailable Unavailable Hadian, Ubaldo Unavailable Unavailable Hadian, Ubaldo Unavailable Unavailable Hadian, Ubaldo Unavailable Unavailable Hadian, Ubaldo Unavailable Unavailable Hadian, Ubaldo Unavailable Unavailable Hadian, Ubaldo Unavailable Unavailable Hadian, Ubaldo Unavailable Unavailable ABDULLAH, ISMAIL ANAND MD Unavailable Unavailable ABDULLAH, ISMAIL ANAND MD Unavailable Unavailable ABDULLAH, ISMAIL ANAND MD Unavailable Unavailable ABDULLAH, ISMAIL ANAND MD Unavailable Unavailable ABDULLAH, ISMAIL ANAND MD Unavailable Unavailable ABDULLAH, ISMAIL ANAND MD Unavailable Unavailable ABDULLAH, ISMAIL ANAND MD Unavailable Unavailable ABDULLAH, ISMAIL ANAND MD Unavailable Unavailable ABDULLAH, ISMAIL ANAND MD Unavailable Unavailable ABDULLAH, ISMAIL ANAND MD Unavailable Unavailable ABDULLAH, ISMAIL ANAND MD Unavailable Unavailable ABDULLAH, ISMAIL ANAND MD Unavailable Unavailable BROUGHAL, C MARCE PA Unavailable Unavailable BROUGHAL, C MARCE PA Unavailable Unavailable BROUGHAL, C MARCE PA Unavailable Unavailable BROUGHAL, C MARCE PA Unavailable Unavailable BROUGHAL, C MARCE PA Unavailable Unavailable BROUGHAL, C MARCE PA Unavailable Unavailable SYSTEM IN, NOT IN PROVIDER Unavailable Unavailable MOUSAW, CONROE KARYN CNM Unavailable Unavailable MOUSAW, CONROE KARYN CNM Unavailable Unavailable MOUSAW, CONROE KARYN CNM Unavailable Unavailable MOUSAW, CONROE KARYN CNM Unavailable Unavailable MOUSAW, CONROE KARYN CNM Unavailable Unavailable MOUSAW, CONROE KARYN CNM Unavailable Unavailable MOUSAW, CONROE KARYN CNM Unavailable Unavailable MOUSAW, CONROE KARYN CNM Unavailable Unavailable MOUSAW, CONROE KARYN CNM Unavailable Unavailable MOUSAW, CONROE KARYN CNM Unavailable Unavailable MOUSAW, CONROE KARYN CNM Unavailable Unavailable MOUSAW, CONROE KAYRN CNM Unavailable Unavailable MOUSAW, CONROE KARYN CNM Unavailable Unavailable MOUSAW, CONROE KARYN CNM Unavailable Unavailable MOUSAW, CONROE KARYN CNM Unavailable Unavailable Re-disclosure Warning The records that you are about to access may contain information from federally-assisted alcohol or drug abuse programs. If such information is present, then the following federally mandated warning applies: This information has been disclosed to you from records protected by federal confidentiality rules (42 CFR part 2). The federal rules prohibit you from making any further disclosure of this information unless further disclosure is expressly permitted by the written consent of the person to whom it pertains or as otherwise permitted by 42 CFR part 2. A general authorization for the release of medical or other information is NOT sufficient for this purpose. The Federal rules restrict any use of the information to criminally investigate or prosecute any alcohol or drug abuse patient.The records that you are about to access may contain highly sensitive health information, the redisclosure of which is protected by Article 27-F of the [facility] Public Health law. If you continue you may have access to information: Regarding HIV / AIDS; Provided by facilities licensed or operated by the [facility] Office of Mental Health; or Provided by the [facility] Office for People With Developmental Disabilities. If such information is present, then the following [facility] mandated warning applies: This information has been disclosed to you from confidential records which are protected by state law. State law prohibits you from making any further disclosure of this information without the specific written consent of the person to whom it pertains, or as otherwise permitted by law. Any unauthorized further disclosure in violation of state law may result in a fine or custodial sentence or both. A general authorization for the release of medical or other information is NOT sufficient authorization for further disc losure. Allergies and Adverse Reactions Type Description Substance Reaction Status Data Source(s ) Drug allergy Drug allergy No Known Allergies Go [facility] Encounters Encounter Providers Location Date Indications Data Source(s ) Outpatient Attender: DOLORES PALACIOS MD Main Office 07/09/2020 11:30:00 AM EST [facility] ([facility]) Preadmit Attender: MARCE LEE CPSCAORT-LABCOVWAR 0 06/12/2020 12:00:[address] [facility] Outpatient Attender: Abdias Dodd MD CPSCAORT-CPSLAOBG 0 06/09/2020 02:04:00 PM EST - 06/09/2020 02:05:00 PM EST [facility] Patient discharged. Outpatient Attender: She LEE ED-LABGH 0 05/27/2020 03:36:00 PM EST - 05/27/2020 03:37:00 PM EST Z0000 [id number] [facility] Z0000 [id number] Patient discharged. Outpatient Referrer: PROVIDER SYSTEM IN 05/16/2020 1 2:09:00 PM EST left sided CP, SOB, hypoxia left sided CP, SOB, hypoxia Outpatient Attender: ANAND WAGNER MD CPSCAORT-OBOUT 04/22 11:11:00 AM EST - 05/14/2020 05:23:[address] [facility] NST Patient discharged. Outpatient Attender: Abdias Dodd MD CPSCAORT-CPSLAOBG 1 07/09/2019 03:14:00 PM EST - 05/08/2020 03:15:[facility] Outpatient Attender: Ubaldo Ly ED-LABPNP 0 10:27:00 AM EST - 04/30/2020 10:28:00 AM EST + EXPOSURE [facility] + EXPOSURE Patient discharged. Outpatient Attender: Abdias Dodd MD ED-IMAGH 01/2020 01:50:00 PM EST - 04/29/2020 01:51:00 PM EST PLACENTA [facility] PLACENTA Patient discharged. Outpatient Attender: Abdias Dodd MD CPSCAORT-CPSLAOBG 1 06/25/2019 03:22:00 PM EST - 04/24/2020 03:23:00 PM EST [facility] Patient discharged. Outpatient Attender: Abdias Dodd MD ED-IMAG 07:56:00 AM EST - 04/20/2020 07:57:00 AM EST R10.11 [facility] R10.11 Patient discharged. Outpatient Attender: Abdias Dodd MD ED-IMAG 01:34:00 PM EST - 04/10/2020 01:35:00 PM EST Z34.03 [facility] Z34.03 Patient discharged. Outpatient Attender: Abdias Dodd MD CPSCAORT-CPSLAOBG 1 06/08/2019 04:20:00 PM EST - 04/08/2020 04:21:00 PM EST [facility] al Patient discharged. Outpatient Attender: Abdias Dodd MD CPSCAORT-CPSLAOBG 1 05/25/2019 03:58:[address] [facility] Outpatient Attender: She LEE CPSCAORT-LABPNP 1 05/23/2019 09:30:[address] [facility] SCREENING Outpatient Attender: She LEE ED-LABPNP 03/23/2020 09:30:00 AM EST ROUTINE SCREENING [facility] ROUTINE SCREENING Outpatient Attender: Abdias Dodd MDAttender: Abdias Padron MD ED-LAB 02/26/2020 07:07:00 AM EDT - 02/26/2020 07:08:00 AM EDT Z3A23 [facility] Z3A23 Patient discharged. Outpatient Attender: Abdias Dodd MD CPSCAORT-CPSLAOBG 1 08:58:00 AM EDT - 02/25/2020 08:59:00 AM EDT [facility] al Patient discharged. Outpatient Attender: KARYN LA CNM ED-IMAG 01/20 07:14:00 AM EDT - 01/31/2020 07:15:00 AM EDT Z3A14 [facility] Z3A14 Patient discharged. Emergency Attender: CHICA LEE ED-ED 01/22 01:14:00 AM EDT - 01/23/2020 03:58:00 AM EDT LOWER BACK / RIGHT SIDE PAIN [facility] LOWER BACK / RIGHT SIDE PAIN Patient discharged. Outpatient Attender: Abdias Dodd MDAttender: Tuan Dodd MD CPSCAORT-CPSLAOBG 01/22/2020 04:14:00 PM EDT - 01/22/2020 04:15:00 PM ED T Z3A.18,R10.9 [facility] Z3A.18,R10.9 Patient discharged. Outpatient Attender: KARYN LA [facility] 02:51:00 PM EDT - 12/20/2019 02:52:00 PM EDT [facility] Patient discharged. Outpatient Attender: KARYN LA CNM ED-LAB 11/2019 08:51:00 AM EDT - 11/26/2019 08:52:00 AM EDT Z3401 [facility] Z3401 Patient discharged. Outpatient Attender: KARYN LA CNM [facility] 10:34:00 AM EDT - 11/21/2019 10:35:00 AM EDT [facility] al Patient discharged. Outpatient CPSCAORT-LABEJN 11/05/2019 02:46:[address] [facility] Outpatient Attender: JANIS Hutchisonder: DAISHA COVARRUBIAS NP ED-IMAG 11/05/2019 08:49:00 AM EDT - 11/05/2019 08:50:00 AM EDT DATING AND VIABILITY Z3A01 [facility] DATING AND VIABILITY Z3A01 Patient discharged. Outpatient Attender: DAISHA COVARRUBIAS NP CPSCAORT-CPSLAOBG 12:56:00 PM EDT - 10/24/2019 12:57:00 PM EDT [facility] al Patient discharged. Outpatient CPSCAORT-LABEJN 09/23/2019 07:49:[address] [facility] Outpatient Attender: Ubaldo Ly ED-LABPNP 09/23/2019 02:48:0 0 PM EDT SCREENING [facility] SCREENING Insurance Providers Payer name Policy type / Coverage type Policy ID Covered green party ID Covered green party's relationship to ramirez Policy Ramirez Plan Information [facility] [id number] [facility] [id number] [place] P[place] [id number] SP [id number] [employer] [place] [id number] S [id number] UNINSURED [id number] S [id number] [employer] [place] [id number] S [id number] [employer] [place] [id number] S [id number] [facility] [id number] S [id number] [employer] [place] [id number] S [id number] SELF PAY S MEDICAID [id number] S [id number] SELF PAY O UNAVAILABLE S UNAVAILA BLE Blue Cross Blue Shield P [id number] SELF [id number] BCBS [facility] EMPLOYEES [id number] S [id number] [employer] [place] [id number] S [id number] [employer] [place] [id number] S [id number] BLUE CROSS [id number] S [id number] BLUE CROSS HMO BLUE -O/P [id number] [facility] C[facility] [id number] S [id number] BLUE CROSS [id number] S [id number] UNKNOWN UNKNOWN Problems, Conditions, and Diagnoses Code Display Name Description Problem Type Effective Dates Data Source(s) 528470663 Obesity Obesity Problem 07/09/2020 12:00:00 AM ES T [facility] ([facility]) [id number] Dietary management surveillance Dietary manageme nt surveillance Problem 07/09/2020 12:00:00 AM EST [facility] ([facility] [id number] Acute subendocardial infarction Acute subendocar dial infarction Problem 07/09/2020 12:00:00 AM EST [facility] ([facility] [id number] Acute diastolic heart failure Acute diastolic heart fa ilure Problem 07/09/2020 12:00:00 AM EST [facility] ([facility]) [id number] Chest pain Chest pain Problem 07/09/2020 12:00:00 AM EMMA SOOD ([facility]) Z30.09 Encounter for other general counseling a nd advice on contraception ENCOUNTER FOR OTH GENERAL CNSL AND ADVICE ON CONTRACEPTION Diagnosis 06/09/2020 02:04:00 PM [facility] left sided CP, SOB, hypoxia left sided CP, SOB, hypoxi a Diagnosis 05/16/2020 12:09:00 PM [facility] Z3A.33 33 weeks gestation of 33 WEEKS GESTATI ON OF Diagnosis 04/29/2020 01:50:00 PM [facility] Z34.93 Encounter for supervision of normal , unspecified, third trimester ENCNTR FOR SUPRVSN OF NORMAL PREG, UNSP, THIRD TRIMESTER Shirley gnosis 04/29/2020 01:50:00 PM [facility] Z34.03 Encounter for supervision of normal firs t , third trimester ENCNTR FOR SUPRVSN OF NORMAL FIRST PREG, THIRD TRIMESTER Diagnosis 04/10/2020 01:34:00 PM [facility] Z20.828 Contact with and (suspected) exposure to other viral communicable diseases CONTACT W AND EXPOSURE TO OTH VIRAL COMMUNICABLE DISEASES Di agnosis 03/23/2020 09:30:00 AM [facility] Z31.430 Encounter of female for test ing for genetic disease carrier status for procreative management ENCNTR FEM FOR TEST FOR GENETC DIS RYAN ER STAT FOR PRO MGMT Diagnosis 11/26/2019 08:51:00 AM [facility] Z3A.09 9 weeks gestation of 9 WEEKS GESTATION OF GA EGNANCY Diagnosis 11/26/2019 08:51:[address] [facility] Z34.81 Encounter for supervision of other josefina l , first trimester ENCOUNTER FOR SUPRVSN OF NORMAL , FIRST TRIMESTER Diagnosis 11/26/2019 08:51:[address] [facility] Surgeries/Procedures Procedure Description Date Indications Data Source(s) ECG ROUTINE ECG W/LEAST 12 LDS W/I&R 07/09/2020 12:00: 00 AM ARIANNA SOOD ([facility]) [facility] outpatient clinic visit for assessment and ma nagement of a patient Hospital Outpatient Clinic Visit 06/09/2020 12:00:00 AM [facility] US PREG UTERUS REAL TIME F/U TRNSABDL PER FETUS OB US FOLLOW -UP PER FETUS 04/29/2020 12:00:00 AM [facility] U0003 SARS-CoV-2 detection by nucleic acid 03/23/2020 12:00: 00 AM [facility] COLLECTION VENOUS BLOOD VENIPUNCTURE ROUTINE VENIPUNCTURE 12:00:00 AM EDT [facility] Results ID Date Data Source [id number] 05/27/2020 04:43:00 PM [facility] Name Value Range Interpretation Code Description Data Yoli rce(s) Supporting Document(s) Vitamin D, Total 30.0-100.0 Normal (applies to non-numeric results) [facility] ID Date Data Source [id number] 05/27/2020 04:31:00 PM [facility] Name Value Range Interpretation Code Description Data Yoli rce(s) Supporting Document(s) Sodium 145 mmol/L 136-145 Normal (applies to non-numeric resul ts) [facility] Potassium 3.5-5.1 Normal (applies to non-numeric resul ts) [facility] Chloride 105 mmol/L 98-107 Normal (applies to non-numeric resul ts) [facility] Carbon Dioxide CO2 21-32 Normal (applies to non-numer ic results) [facility] Anion Gap 5.0-16.0 Normal (applies to non-numeric resul ts) [facility] BUN 13 mg/dL 7-18 Normal (applies to non-numeric results) [facility] Creatinine,Serum 0.7-1.2 Normal (applies to non-numeric results) [facility] GFR 59 mL/min >60 Below low normal [facility] spital Glucose Level 101 mg/dL 60-99 Above high normal [facility] Reference range is only applicable when patient is fasting Note the following drug interference: Sulfasalazine Sulfapyridine Can see falsely depressed Can see falsely elevated result with up to 17% results with up to 11% decrease in measurement increase in measurement Recommend patients be collected for this test prior to administration of either drug. Calcium 8.5-10.1 Normal (applies to non-numeric resul ts) [facility] Bilirubin,Total 0.1-1.9 Normal (applies to non-numeric results) [facility] SGOT(AST) 24 U/L 15-37 Normal (applies to non-numeric resul ts) [facility] Note the following drug interference: Sulfasalazine Sulfapyridine Can see falsely depressed Can see falsely elevated result with up to 10% results with up to 10% decrease in measurement increase in measurement Recommend patients be collected for this test prior to administration of either drug. SGPT(ALT) 27 U/L 12-78 Normal (applies to non-numeric resul ts) [facility] Note the following drug interference: Sulfasalazine Sulfapyridine Can see falsely depressed Can see falsely elevated result with up to 29% results with up to 10% decrease in measurement increase in measurement Recommend patients be collected for this test prior to administration of either drug. Alkaline Phosphatase 110 U/L 38-126 Normal (applies to non-num hue results) [facility] can increase Alkaline Phosp le vels up to 2 times the normal adult value. Normal values for children and adolescents are 2 to 3 times the normal adult value. Total Protein 6.0-8.2 Normal (applies to non-numeric re sults) [facility] Albumin Level 3.4-5.0 Normal (applies to non-numeric re sults) [facility] ID Date Data Source [id number] 05/27/2020 04:31:00 PM EST [facility] Name Value Range Interpretation Code Description Data Yoli rce(s) Supporting Document(s) Thyroid Stimulate Hormone TSH 0.358-3.74 No rmal (applies to non-numeric results) [facility] ID Date Data Source [id number] 05/27/2020 04:31:00 PM [facility] Name Value Range Interpretation Code Description Data Yoli rce(s) Supporting Document(s) Magnesium 1.8-2.4 Normal (applies to non-numeric resul ts) [facility] ID Date Data Source [id number] 05/27/2020 04:03:00 PM EST [facility] Name Value Range Interpretation Code Description Data Yoli rce(s) Supporting Document(s) White Blood Count 3.5-10.5 Above high normal [facility] [facility] Red Blood Count 3.90-5.00 Normal (applies to non-numeric results) [facility] Hemoglobin 12.0-15.5 Normal (applies to non-numeric resul ts) [facility] Hematocrit 34.9-44.5 Normal (applies to non-numeric resul ts) [facility] Mean Corpuscular Volume 81.2-95.1 Normal (applies to non- numeric results) [facility] Mean Corpuscular Hgb 25.6-32.2 Normal (applies to non-num hue results) [facility] Mean Corpuscular Hgb Conc 32.0-36.0 Normal (applies to no n-numeric results) [facility] Red Cell Distribution Width 11.9-15.5 Normal (appli es to non-numeric results) [facility] Platelet Count 533 x10 3/uL 150-450 Above high normal [facility] Mean Platelet Volume 9.4-12.4 Below low normal [facility] Neutrophils% (Auto) 31.0-71.0 Normal (applies to non-nume corie results) [facility] Lymphocytes% (Auto) 20.0-55.0 Normal (applies to non-nume corie results) [facility] Monocytes% (Auto) 4.0-12.0 Normal (applies to non-numeri c results) [facility] Eosinophils% (Auto) 1.0-8.[address] [facility] Basophils% (Auto) 0.0-2.0 Normal (applies to non-numeri c results) [facility] Immature Granulocytes% (Auto) 0.0-2.0 Normal (gen lies to non-numeric results) [facility] Neutrophils# (Auto) 1.50-6.20 Above high normal [facility] Lymphocytes# (Auto) 1.20-4.00 Normal (applies to non-nume corie results) [facility] Monocytes# (Auto) 0.00-0.90 Normal (applies to non-numeri c results) [facility] Eosinophils# (Auto) 0.00-0.50 Normal (applies to non-nume corie results) [facility] Basophils# (Auto) 0.00-0.20 Normal (applies to non-numeri c results) [facility] Immature Granulocytes# (Auto) 0.00-7.00 No rmal (applies to non-numeric results) [facility] ID Date Data Source [id number] 05/25/2020 10:17:00 AM EST [facility] Name Value Range Interpretation Code Description Data Yoli rce(s) Supporting Document(s) Respiratory specimen severe acute respir atory syndrome coronavirus 2 (SARS-CoV-2) RNA [facility] This lab was ordered by [facility] facundo and reported by . ID Date Data Source [id number] 05/16/2020 05:38:00 PM EST [facility] Name Value Range Interpretation Code Description Data Yoli rce(s) Supporting Document(s) White Blood Count 16.3 4.0-10.0 [facility] ([facility]) Hemoglobin 10.4 [facility] ([facility]) Platelets 227 150-450 [facility] ([facility]) Red Blood Count 3.26 4.00-5.40 [facility] ([facility]) Hematocrit 31.5 [facility] ([facility]) ID Date Data Source [id number] 05/16/2020 05:38:00 PM EST [facility] ([facility]) Name Value Range Interpretation Code Description Data Yoli rce(s) Supporting Document(s) Magnesium Level 1.7 1.8-2.4 [facility] ([facility]) Troponin 0.98 [facility] ([facility]) C-Reactive Protein 9.55 0.00-0.30 [facility] ([facility]) Natriuretic peptide.B prohormone N-Terminal [Mass/volu me] in Serum or Plasma 3071 [facility] ([facility]) Ferritin [Mass/volume] in Serum or Plasma 64 0-252 [facility] ([facility]) ID Date Data Source [id number] 05/16/2020 05:38:00 PM EST [facility] ([facility]) Name Value Range Interpretation Code Description Data Yoli rce(s) Supporting Document(s) Alanine aminotransferase [Enzymatic activity/volume] in Serum or Pl asma 16 [facility] ([facility]) Albumin [Mass/volume] in Serum or Plasma 1.8 [facility] ([facility]) Calcium [Mass/volume] in Serum or Plasma 8.2 [facility] ([facility]) Carbon dioxide, total [Moles/volume] in Serum or Plasma 23 [facility] ([facility]) Chloride [Moles/volume] in Serum or Plasma 110 [facility] ([facility]) Alkaline phosphatase [Enzymatic activity/volume] in Serum or Plasma 1 04 [facility] ([facility]) Protein [Mass/volume] in Serum or Plasma 4.7 [facility] ([facility]) Potassium [Moles/volume] in Serum or Plasma 3.6 [facility] ([facility]) Glucose 84 70-100 [facility] ([facility] Urea nitrogen [Mass/volume] in Serum or Plasma 8 [facility] ([facility]) Aspartate aminotransferase [Enzymatic activity/volume] in Serum or Plasma 35 [facility] ([facility]) Sodium 142 [facility] ([facility] Creatinine For GFR 0.89 [facility] ([facility]) ID Date Data Source [id number] 05/16/2020 06:55:00 AM EST [facility] Name Value Range Interpretation Code Description Data Yoli rce(s) Supporting Document(s) SARS-CoV-2 (COVID 19) [facility] This lab was ordered by [facility] a nd reported by [facility]. ID Date Data Source [id number] 05/16/2020 12:29:00 AM EST [facility] Name Value Range Interpretation Code Description Data Yoli rce(s) Supporting Document(s) SARS coronavirus 2 RNA [Presence] in Res piratory specimen by LEXUS with probe detection [facility] This lab was ordered by [facility] a nd reported by [facility]. ID Date Data Source [id number] 05/14/2020 05:03:00 PM EST [facility] Name Value Range Interpretation Code Description Data Yoli rce(s) Supporting Document(s) Respiratory specimen severe acute respir atory syndrome coronavirus 2 (SARS-CoV-2) RNA [facility] This lab was ordered by [facility] jada and reported by [facility]. ID Date Data Source [id number] 05/17/2020 10:16:00 AM [facility] Collected By: Doctor Initials: RS Time Collected: 1500 Name Value Range Interpretation Code Description Data Yoli rce(s) Supporting Document(s) Group B culture [facility] ID Date Data Source [id number] 05/14/2020 03:35:00 PM [facility] Name Value Range Interpretation Code Description Data Yoli rce(s) Supporting Document(s) SARS-CoV-2 RNA Negative Normal (applies to non-numeric r esults) [facility] Negative results should be treated as pr esumptive and, if inconsistent with clinical signs and symptoms or necessary for patient management, should be tested with different authorized or cleared molecular tests. Negative results do not preclude SARS-CoV-2 infection and should not be used as the sole basis for patient management decisions. Negative results should be considered in the context of a patients recent exposures, history and the presence of clinical signs and symptoms consistent with COVID-19. This test has not been FDA cleared or approved; this test has been authorized by FDA under an Emergency Use Authorization for use by laboratories certified under the Clinical Laboratory Improvement Amendments of 1988 (CLIA), 42 U.S.C. 263a, to perform moderate complexity/high complexity tests and at the Point of Care (POC), i.e., in patient care settings operating under a CLIA Certificate of Waiver, Certificate of Compliance, or Certificate of Accreditation. Factsheets for healthcare providers: https://www.fda.gov/media/415961/download Factsheets for patients: https://www.fda.gov/media/440441/download The ID NOW Instrument is a rapid molecular in vitro diagnostic test utilizing an isothermal nucleic acid amplification technology intended for the qualitative detection of nucleic acid from the SARS-CoV-2 viral RNA. THIS IS A STATE REPORTABLE COMMUNICABLE DISEASE. Manual entry verified by Dimple Patino 05/14/20 1534 ID Date Data Source [id number] 05/14/2020 12:00:00 PM [facility] Name Value Range Interpretation Code Description Data [facility] rce(s) Supporting Document(s) Rupture of Membranes Normal (applies to non-num hue results) [facility] Interpretation: Rupture of membranes is indicated. ID Date Data Source [id number] 05/14/2020 02:46:00 PM [facility] Name Value Range Interpretation Code Description Data Yoli rce(s) Supporting Document(s) Color,Urine Yellow Normal (applies to non-numeric resu lts) [facility] Clarity,Urine Clear Normal (applies to non-numeric re sults) [facility] Specific [place],Urine 1.001-1.030 Normal (applies to non- numeric results) [facility] PH,Urine 5.0-8.0 Normal (applies to non-numeric resul ts) [facility] Protein,Urine Negative Normal (applies to non-numeric re sults) [facility] Glucose,Urine (UA) Negative Normal (applies to non-numer ic results) [facility] Ketones,Urine Negative Normal (applies to non-numeric re sults) [facility] Blood,Urine Negative Normal (applies to non-numeric resu lts) [facility] Bilirubin,Urine Negative Normal (applies to non-numeric results) [facility] Urobilinogen,Urine Norm 0.2-1 Normal (applies to non-numer ic results) [facility] Leukocyte Esterase,Urine Negative Normal (applies to non -numeric results) [facility] Nitrite,Urine Negative Normal (applies to non-numeric re sults) [facility] RBC,Auto Urine 0-2 Normal (applies to non-numeric r esults) [facility] WBC Urine Auto 0-10 Normal (applies to non-numeric r esults) [facility] Casts,Hyaline,Urine Auto 0-2 Normal (applies to non -numeric results) [facility] Bacteria Urine Auto None Seen Normal (applies to non-nume corie results) [facility] Epithelial Cell Ur Auto None-Few Normal (applies to non- numeric results) [facility] ID Date Data Source [id number] 04/30/2020 10:40:00 AM [facility] First test? NOEmployed in healthcare? YESSymptomatic per CDC? NOHospitalized? NOICU? NOResident in congregated care? ex senior care, AR[facility] NO? YES Name Value Range Interpretation Code Description Data Yoli rce(s) Supporting Document(s) SARS-CoV-2 RNA Negative Normal (applies to non-numeric r esults) [facility] Negative results should be treated as pr esumptive and, if inconsistent with clinical signs and symptoms or necessary for patient management, should be tested with different authorized or cleared molecular tests. Negative results do not preclude SARS-CoV-2 infection and should not be used as the sole basis for patient management decisions. Negative results should be considered in the context of a patient???s recent exposures, history and the presence of clinical signs and symptoms consistent with COVID-19. This test has not been FDA cleared or approved; this test has been authorized by FDA under an Emergency Use Authorization for use by laboratories certified under the Clinical Laboratory Improvement Amendments of 1988 (CLIA), 42 U.S.C. ???263a, to perform moderate complexity/high complexity tests and at the Point of Care (POC), i.e., in patient care settings operating under a CLIA Certificate of Waiver, Certificate of Compliance, or Certificate of Accreditation. Factsheets for healthcare providers: https://www.fda.gov/media/429308/download Factsheets for patients: https://www.fda.gov/media/406718/download The ID NOW Instrument is a rapid molecular in vitro diagnostic test utilizing an isothermal nucleic acid amplification technology intended for the qualitative detection of nucleic acid from the SARS-CoV-2 viral RNA. THIS IS A STATE REPORTABLE COMMUNICABLE DISEASE. Manual entry verified by Huan Fagan 04/30/20 1039 ID Date Data Source [id number] 05/06/2020 04:15:00 PM [facility] Imaging Services Department Imaging Report [address] [place] [id number] %(RAD)RES..mtdd.print.filter("line") Name: CHRIS SEVERINO : 1995 Age/Sex: 25F Ordering Provider: Abdias Dodd MD Med Rec #: [id number] Reg Status: DEP REF Room #: Date of Service: 04/29/20 Report Number: [id number] cc:JESUS Salinas; Abdias Dodd MD Send Report To: [id number] US/ OB Follow Up Exam Reason for exam: 33 WEEKS GESTATION OF LMP: = EDC EGA = wks days EARLIEST ULT: 7 w 4 d = EDC 06/19/2020 EGA = 32 wks 5 days GESTATION: Single PRESENTATION: Vertex, spine down MEASUREMENTS AND VALUES LISTED BELOW ARE BASED ON TODAY'S EXAM BPD: 83.7 mm 33 w 5 d HC: 312.3 mm 35 w 0 d AC: 290.5 mm 35 w 0 d FL: 64.2 mm 33 w 1 d HC/AC: 1.08 (range 0.96-1.17) CI: 81.4 (range 74-83) EFW:2,171 grams +/- 321 g (60%) FHR: 135 bpm PLACENTAL LOCATION: Anterior CERVICAL LENGTH: 35.9 mm WINSTON: 16.9 cm FINDINGS: Earliest ultrasound for this gestation was performed at 7 weeks 4 days. EDC 06/19/2020 and current EGA by ultrasound is 32 weeks 5 days. Single live intrauterine gestation in vertex presentation. The placenta is positioned anteriorly. No placenta previa. cardiac activity is documented at 135 bpm. Cervical is closed measuring 30 mm in length. WINSTON 16.9 cm. HC/AC 1.08. CI 81.4. EFW 2,171 grams +/- 321 g (60%). IMPRESSION: Single live intrauterine gestation with cardiac activity of 135 bpm and EGA by ultrasound 32 weeks 5 days. Normal amniotic fluid index. REPORT SIGNATURE ON FILE Reported By: Nicolas Romo MD <Electronically signed by Nicolas Romo MD> 05/08/20 1311 Dictation Date/Time: 05/06/20 0905 Transcribed Date/Time: 05/06/20 1615 Transcri ptionist: JUAN ANTONIO Name Value Range Interpretation Code Description Data Yoli rce(s) Supporting Document(s) ID Date Data Source [id number] 04/20/2020 01:27:00 PM [facility] Imaging Services Department Imaging Report [address], [place] [address] %(RAD)RES..mtdd.print.filter("line") Name: CHRIS SEVERINO : 1995 Age/Sex: 25F Ordering Provider: Abdias Dodd MD Med Rec #: [id number] Reg Status: DEP REF Room #: Date of Service: 04/20/20 Report Number: [id number] cc:JESUS Salinas; Abdias Dodd MD Send Report To: [id number] US/US Abdomen Complete Reason for exam: RUQ ABD PAIN FINDINGS: Liver: Appears unremarkable and measures 12.5 cm. Gallbladder: Appears unremarkable without evidence of cholelithiasis, pericholecystic fluid o r gallbladder wall thickening. Gallbladder wall is normal at 2 mm. CBD: Normal at 4 mm. Kidneys: Right kidney measures 10.0 x 5.6 x 5.9 cm. Mild hydronephrosis is identified in the right kidney. No definite renal calculi are noted. Left kidney measures 10.1 x 5.2 x 6.2 cm. Spleen: Is within normal limits measuring 9.2 cm. Pancreas: Is not clearly visualized on today's examination. Aorta: Mid and distal portions of the aorta are not clearly visualized. Patient is gravid. The proximal aorta is within normal limits measuring 1.6 cm. Proximal IVC: Unremarkable. IMPRESSION: Mild right sided hydronephrosis probably secondary to the . No definite stones are identified. Remainder of the examination appears unremarkable in its visualized portions. REPORT DICTATED BY CHICA CHAIDEZ, REVIEWED AND SIGNED BY DR. MONTEIRO REPORT SIGNATURE ON FILE Reported By: Darin Monteiro MD <Electronically signed by Darin Monteiro MD> 05/04/20 1317 Dictation Date/Time: 04/20/20 0904 Transcribed Date/Time: 04/20/20 132 Harness And Bag Inspector: SPRING Name Value Range Interpretation Code Description Data Yoli rce(s) Supporting Document(s) ID Date Data Source [id number] 04/15/2020 01:38:00 PM [facility] Imaging Services Department Imaging Report [address] [place] [id number] %(RAD)RES..mtdd.print.filter("line") Name: CHRIS SEVERINO : 1995 Age/Sex: 25F Ordering Provider: Abdias Dodd MD Med Rec #: [id number] Reg Status: [facility] REF Room #: Date of Service: 04/10/20 Report Number: [id number] cc:JESUS Salinas; Abdias Dodd MD Send Report To: [id number] US/US OB Follow Up Exam Reason for exam: NORMAL FIRST ,THIRD TRIMESTER FINDINGS: EARLIEST ULT: 7W 4D = EDC 06/19/20 EGA = 30 wks 0 days GESTATION: Single. PRESENTATION: Vertex, spine up WINSTON: 18.8 cm MEASUREMENTS AND VALUES LISTED BELOW ARE BASED ON TODAY'S EXAM BPD: 79.1 MM 31 W 5 D +/- 22 D HC: 279.2 MM 30 W 4 D +/- 21 D AC: 268.7 MM 31 W 0 D +/- 21 D FL: 60.3 MM 31 W 3 D +/- 21 D AVERAGE US AGE: 31 W 1 D EDC: 06/11/20 HC/AC: 1.04 (range 0.99-1.21) CI: 82.4 (range 74-83) EFW: 1702 g +/- 252 g (76%) FHR: 135 bpm CORD: Three vessel INSERTION: Central. PLACENTAL LOCATION: Anterior, no previa. CERVICAL LENGTH: 30.1 mm A few 4D facial images were obtained and appear unremarkable. IMPRESSION: Live single intrauterine gestation in the vertex p osition. Sonographic EGA of 31 weeks 1 day. Estimated weight 1702 g at the 76th percentile. Amniotic fluid index 18.8 cm. REPORT SIGNATURE ON FILE Reported By: Darin Monteiro MD <Electronically signed by Darin Monteiro MD> 04/17/20 1055 Dictation Date/Time: 04/13/20 0952 Transcribed Date/Time: 04/15/20 1338 Harness And Bag Inspector: BRIT Name Value Range Interpretation Code Description Data Yoli rce(s) Supporting Document(s) ID Date Data Source [id number] 05/05/2020 06:34:[address] [facility] Name Value Range Interpretation Code Description Data Yoli rce(s) Supporting Document(s) SARS-CoV-2 LEXUS result NotDetected Normal (applies to non-n umeric results) [facility] This nucleic acid amplification test was developed and its performance characteristics determined by [employer]. Nucleic acid amplification tests include PCR and TMA. This test has not been FDA cleared or approved. This test has been authorized by FDA under an Emergency Use Authorization (EUA). This test is only authorized for the duration of time the declaration that circumstances exist justifying the authorization of the emergency use of in vitro diagnostic tests for detection of SARS-CoV-2 virus and/or diagnosis of COVID-19 infection under section 564(b)(1) of the Act, 21 U.S.C. 360bbb-3(b) (1), unless the authorization is terminated or revoked sooner. When diagnostic testing is negative, the possibility of a false negative result should be considered in the context of a patient's recent exposures and the presence of clinical signs and symptoms consistent with COVID-19. An individual without symptoms of COVID-19 and who is not shedding SARS-CoV-2 virus would expect to have a negative (not detected) result in this assay. Performed at: - [facility] [id number] Cobol Developer: Elizabeth Llanos MD, Phone: [phone] ID Date Data Source [id number] 03/31/2020 03:14:00 PM EST [facility] Name Value Range Interpretation Code Description Data Yoli rce(s) Supporting Document(s) COVID-19 Result Normal (applies to non-numeric results) [facility] See scanned report ID Date Data Source [id number] 02/26/2020 09:07:00 AM EDT [facility] Name Value Range Interpretation Code Description Data Yoli rce(s) Supporting Document(s) Glucose,1Hr PP 90 mg/dL 70-140 Normal (applies to non-numeric r esults) [facility] Note the following drug interference: Sulfasalazine Sulfapyridine Can see falsely depressed Can see falsely elevated result with up to 17% results with up to 11% decrease in measurement increase in measurement Recommend patients be collected for this test prior to administration of either drug. ID Date Data Source [id number] 02/26/2020 08:51:00 AM EDT [facility] Name Value Range Interpretation Code Description Data Yoli rce(s) Supporting Document(s) White Blood Count 3.5-10.5 Above high normal [facility] Red Blood Count 3.90-5.00 Below low normal [facility] Hemoglobin 12.0-15.[address] [facility] Hematocrit 34.9-44.[address] [facility] Mean Corpuscular Volume 81.2-95.1 Above high normal [facility] Mean Corpuscular Hgb 25.6-32.[address] [facility] Mean Corpuscular Hgb Conc 32.0-36.0 Normal (applies to no n-numeric results) [facility] Red Cell Distribution Width 11.9-15.5 Normal (appli es to non-numeric results) [facility] Platelet Count 333 x10 3/uL 150-450 Normal (applies to non-numeric results) [facility] Mean Platelet Volume 9.4-12.4 Below low normal [facility] Neutrophils% (Auto) 31.0-71.0 Above high normal [facility] Lymphocytes% (Auto) 20.0-55.[address] [facility] Monocytes% (Auto) 4.0-12.0 Normal (applies to non-numeri c results) [facility] Eosinophils% (Auto) 1.0-8.[address] [facility] Basophils% (Auto) 0.0-2.0 Normal (applies to non-numeri c results) [facility] Immature Granulocytes% (Auto) 0.0-2.0 Normal (gen lies to non-numeric results) [facility] Neutrophils# (Auto) 1.50-6.20 Above high normal [facility] Lymphocytes# (Auto) 1.20-4.00 Normal (applies to non-nume corie results) [facility] Monocytes# (Auto) 0.00-0.90 Normal (applies to non-numeri c results) [facility] Eosinophils# (Auto) 0.00-0.50 Normal (applies to non-nume corie results) [facility] Basophils# (Auto) 0.00-0.20 Normal (applies to non-numeri c results) [facility] Immature Granulocytes# (Auto) 0.00-7.00 No rmal (applies to non-numeric results) [facility] ID Date Data Source [id number] 02/01/2020 06:13:00 AM EDT [facility] Imaging Services Department Imaging Report [address], [place] [address] %(RAD)RES..mtdd.print.filter("line") Name: CHRIS EDWARDS : 1995 Age/Sex: 24F Ordering Provider: Karyn La CNM Med Rec #: [id number] Reg Status: DEP REF Room #: Date of Service: 01/31/20 Report Number: [id number] cc:JESUS Salinas; Karyn La CNM Send Report To: [id number] US/ Obstetrical Study Reason for exam: ANATOMY Comparison: 11-05-19 FINDINGS: EARLIEST ULT: 7w4d = EDC 06-19-20 EGA = 20 wks 0 days GESTATION: Single. PRESENTATION: Breech. Variable. PLACENTAL LOCATION: Anterior. Low lying. Inferior edge of the placenta is about1.4 cm from the internal os of the cervix. CORD: 3 vc. INSERTION: Central. CERVICAL LENGTH:49.2 mm this maybe accentuated. ANATOMY VISUALIZED: The lateral ventricle measures 0.6 cm. The cerebellum 2.1 cm; cisterna magna 0.5 cm. For the anatomic survey, the images provided of the intracranial contents, midline face with the nose/lips, mandible, orbits, palate, spine, extremities, urinary bladder, diaphragm, stomach, four chamber heart, septum, right/left ventricular outflow tracts, 3 vc, cord insertion, profile, kidneys, 4D face appear unremarkable. MEASUREMENTS AND VALUES LISTED BELOW ARE BASED ON TODAY'S EXAM BPD: 48.5 mm 20w 5d +/- 12d. HC: 176.2 mm 20w 1 d +/- 10d. AC: 146.3 mm 19w 6d +/- 14d. FL: 31.9 mm 19w 6d +/- 13d. HL: 32.0 mm 20w 5d +/- 23d. AVERAGE U/S AGE: 20w 2d EDC: 06-17-20 HC/AC: 1.20 (range 1.09-1.26) CI: 82.1 (range 74-83) EFW: 324 g +/- 48 g (43%) FHR: 141 bpm. WINSTON: 15.5 cm. IMPRESSION: Live,single, intrauterine gestation in the breech position. Sonographic EGA of 20w 2d. EFW 324 grams at the 43%. WINSTON 15.5 cm. Anatomical survey unremarkable. The placenta appears low lying, suggest followup. REPORT SIGNATURE ON FILE Reported By: Darin Monteiro MD <Electronically signed by Darin Monteiro MD> 02/03/20 1120 Dictation Date/Time: 01/31/20 112 Transcribed Date/Time: 02/01/20612 Harness And Bag Inspector: SPR[place] Name Value Range Interpretation Code Description Data Yoli rce(s) Supporting Document(s) ID Date Data Source [id number] 01/23/2020 02:49:00 AM EDT [facility] Name Value Range Interpretation Code Description Data [facility](s) Supporting Document(s) White Blood Count 3.5-10.5 Above high normal [facility] Red Blood Count 3.90-5.00 Below low normal [facility] Hemoglobin 12.0-15.[address] [facility] Hematocrit 34.9-44.[address] [facility] Mean Corpuscular Volume 81.2-95.1 Normal (applies to non- numeric results) [facility] Mean Corpuscular Hgb 25.6-32.[address] [facility] Mean Corpuscular Hgb Conc 32.0-36.0 Normal (applies to no n-numeric results) [facility] Red Cell Distribution Width 11.9-15.5 Normal (appli es to non-numeric results) [facility] Platelet Count 334 x10 3/uL 150-450 Normal (applies to non-numeric results) [facility] Mean Platelet Volume 9.4-12.4 Normal (applies to non-num hue results) [facility] Neutrophils% (Auto) 31.0-71.0 Normal (applies to non-nume corie results) [facility] Lymphocytes% (Auto) 20.0-55.0 Normal (applies to non-nume corie results) [facility] Monocytes% (Auto) 4.0-12.0 Normal (applies to non-numeri c results) [facility] Eosinophils% (Auto) 1.0-8.[address] [facility] Basophils% (Auto) 0.0-2.0 Normal (applies to non-numeri c results) [facility] Immature Granulocytes% (Auto) 0.0-2.0 Normal (gen lies to non-numeric results) [facility] Neutrophils# (Auto) 1.50-6.20 Above high normal [facility] Lymphocytes# (Auto) 1.20-4.00 Normal (applies to non-nume corie results) [facility] Monocytes# (Auto) 0.00-0.90 Above high normal [facility] Eosinophils# (Auto) 0.00-0.50 Normal (applies to non-nume corie results) [facility] Basophils# (Auto) 0.00-0.20 Normal (applies to non-numeri c results) [facility] Immature Granulocytes# (Auto) 0.00-7.00 No rmal (applies to non-numeric results) [facility] ID Date Data Source [id number] 01/23/2020 02:45:00 AM EDT [facility] Name Value Range Interpretation Code Description Data Yoli rce(s) Supporting Document(s) Sodium 137 mmol/L 136-145 Normal (applies to non-numeric resul ts) [facility] Potassium 3.5-5.1 Normal (applies to non-numeric resul ts) [facility] Chloride 102 mmol/L 98-107 Normal (applies to non-numeric resul ts) [facility] Carbon Dioxide CO2 21-32 Normal (applies to non-numer ic results) [facility] Anion Gap 5.0-16.0 Normal (applies to non-numeric resul ts) [facility] BUN 10 mg/dL 7-18 Normal (applies to non-numeric results) [facility] Creatinine,Serum 0.7-1.2 Normal (applies to non-numeric results) [facility] GFR >60 Normal (applies to non-numeric results) [facility] Glucose Level 91 mg/dL 60-99 Normal (applies to non-numeric re sults) [facility] Reference range is only applicable when patient is fasting Note the following drug interference: Sulfasalazine Sulfapyridine Can see falsely depressed Can see falsely elevated result with up to 17% results with up to 11% decrease in measurement increase in measurement Recommend patients be collected for this test prior to administration of either drug. Calcium 8.5-10.1 Normal (applies to non-numeric resul ts) [facility] Bilirubin,Total 0.1-1.9 Normal (applies to non-numeric results) [facility] SGOT(AST) 19 U/L 15-37 Normal (applies to non-numeric resul ts) [facility] Note the following drug interference: Sulfasalazine Sulfapyridine Can see falsely depressed Can see falsely elevated result with up to 10% results with up to 10% decrease in measurement increase in measurement Recommend patients be collected for this test prior to administration of either drug. SGPT(ALT) 33 U/L 12-78 Normal (applies to non-numeric resul ts) [facility] Note the following drug interference: Sulfasalazine Sulfapyridine Can see falsely depressed Can see falsely elevated result with up to 29% results with up to 10% decrease in measurement increase in measurement Recommend patients be collected for this test prior to administration of either drug. Alkaline Phosphatase 66 U/L 38-126 Normal (applies to non-num hue results) [facility] can increase Alkaline Phosp le vels up to 2 times the normal adult value. Normal values for children and adolescents are 2 to 3 times the normal adult value. Total Protein 6.0-8.2 Normal (applies to non-numeric re sults) [facility] Albumin Level 3.4-5.0 Below low normal [facility] ID Date Data Source [id number] 01/23/2020 02:45:00 AM T [facility] Name Value Range Interpretation Code Description Data Yoli rce(s) Supporting Document(s) Amylase 51 U/L 25-115 Normal (applies to non-numeric resul ts) [facility] ID Date Data Source [id number] 01/23/2020 02:45:00 AM EDT [facility] Name Value Range Interpretation Code Description Data Yoli rce(s) Supporting Document(s) Lipase 80 U/L 73-393 Normal (applies to non-numeric resul ts) [facility] ID Date Data Source [id number] 01/23/2020 02:17:[address] [facility] Collected By: Nurse Initials: pc Time Collected: 144 Collected By: Nurse Initials: pc Time Collected: 144 Name Value Range Interpretation Code Description Data [facility] Supporting Document(s) Color,Urine Colorl-Dk Y Normal (applies to non-numeric res ults) [facility] Clarity,Urine Clear Normal (applies to non-numeric re sults) [facility] Specific [place],Urine 1.005-1.030 Normal (applies to non- numeric results) [facility] pH,Urine 5.0-8.0 Normal (applies to non-numeric resul ts) [facility] Protein,Urine Negative Normal (applies to non-numeric re sults) [facility] Glucose,Urine Negative Normal (applies to non-numeric re sults) [facility] Ketones,Urine Negative Normal (applies to non-numeric re sults) [facility] Blood,Urine Negative Normal (applies to non-numeric resu lts) [facility] Bilirubin,Urine Negative Normal (applies to non-numeric results) [facility] Urobilinogen,Urine 0.2-1.0 Normal (applies to non-numer ic results) [facility] Leukocyte Esterase,Urine Negative [facility] Nitrite,Urine Negative Normal (applies to non-numeric re sults) [facility] ID Date Data Source [id number] 01/23/2020 02:17:00 AM EDT [facility] Collected By: Nurse Initials: pc Time Collected: 144 Collected By: Nurse Initials: pc Time Collected: 144 Name Value Range Interpretation Code Description Data Yoli rce(s) Supporting Document(s) RBC,Urine None Seen [facility] WBC,Urine None Seen [facility] Casts,Urine None Seen Normal (applies to non-numeric resu lts) [facility] Squamous Cells,Urine None Seen [facility] Bacteria,Urine None Seen [facility] Hosp ital ID Date Data Source [id number] 01/23/2020 03:00:00 AM [facility] Imaging Services Department Imaging Report [address] [place] [address] %(RAD)RES..mtdd.print.filter("line") Name: CHRIS EDWARDS : 1995 Age/Sex: 24F Ordering Provider: JESUS Garcia Med Rec #: [id number] Reg Status: REG ER Room #: Date of Service: 01/23/20 Report Number: [id number] cc:JESUS Salinas; JESUS Garcia Send Report To: EXAM: US Retroperitoneum, Renal. CLINICAL HISTORY: Rt flank pain that radiates toward the back during . eval for hydro. also included fhr TECHNIQUE: Real-time ultrasound of the retroperitoneum with image documentati on. COMPARISON: None provided. FINDINGS: RIGHT KIDNEY: Mild right hydronephrosis. Normal in size and contour. No renal mass or calculus. LEFT KIDNEY: Normal in size and contour. No renal mass or calculus. No hydronephrosis. BLADDER: Bilateral ureteral jets are seen in the bladder. MISCELLANEOUS: Single live intrauterine gestation, heart rate 141 beats per minute.Impressions: Mild right hydronephrosis. Bilateral ureteral jets identified, no evidence of ureteral obstruction. Single live intrauterine gestation. Time portable performed: Fluoroscopy time in seconds: Number of Exposures: Contrast Agent in ml: Method of Administration: REPORT SIGNATURE ON FILE Reported By: Placido Lyn MD 01/23/20299 Dictation Date/Time: 01/23/20299 Transcribed Date/Time: 01/23/20299 Harness And Bag Inspector: Name Value Range Interpretation Code Description Data Yoli rce(s) Supporting Document(s) ID Date Data Source [id number] 01/24/2020 09:11:[address] [facility] Name Value Range Interpretation Code Description Data Yoli rce(s) Supporting Document(s) Urine Culture Normal (applies to non-numeric re sults) [facility] ID Date Data Source [id number] 01/22/2020 08:50:[address] [facility] Name Value Range Interpretation Code Description Data Yoli rce(s) Supporting Document(s) Color,Urine Yellow Normal (applies to non-numeric resu lts) [facility] Clarity,Urine Clear Normal (applies to non-numeric re sults) [facility] Specific [place],Urine 1.001-1.030 Normal (applies to non- numeric results) [facility] PH,Urine 5.0-8.0 Normal (applies to non-numeric resul ts) [facility] Protein,Urine Negative Normal (applies to non-numeric re sults) [facility] Glucose,Urine (UA) Negative Normal (applies to non-numer ic results) [facility] Ketones,Urine Negative Normal (applies to non-numeric re sults) [facility] Blood,Urine Negative Normal (applies to non-numeric resu lts) [facility] Bilirubin,Urine Negative Normal (applies to non-numeric results) [facility] Urobilinogen,Urine Norm 0.2-1 Normal (applies to non-numer ic results) [facility] Leukocyte Esterase,Urine Negative [facility] Nitrite,Urine Negative Normal (applies to non-numeric re sults) [facility] RBC,Auto Urine 0-2 Normal (applies to non-numeric r esults) [facility] WBC Urine Auto 0-10 Normal (applies to non-numeric r esults) [facility] Casts,Hyaline,Urine Auto 0-2 Normal (applies to non -numeric results) [facility] Bacteria Urine Auto None Seen Normal (applies to non-nume corie results) [facility] Epithelial Cell Ur Auto None-Few Normal (applies to non- numeric results) [facility] ID Date Data Source [id number] 11/05/2019 09:24:[address] [facility] Name Value Range Interpretation Code Description Data Yoli rce(s) Supporting Document(s) BLOOD TYPE PATIENT A Positive Normal (applies to non-numer ic results) [facility] ANTIBODY SCREEN NEGATIVE Normal (applies to non-numeric results) [facility] ID Date Data Source [id number] 11/08/2019 04:13:00 PM EDT [facility] Name Value Range Interpretation Code Description Data Yoli rce(s) Supporting Document(s) Chlamydia,Urine result Negative Normal (applies to non-n umeric results) [facility] Test Performed By: [facility] [address] [place] [address] Director: Susana Hankins MD . GC Urine result Negative Normal (applies to non-numeric results) [facility] Test Performed By: [facility] [address] [place] [address] Director: Susana Hankins MD . Methodology: Second generation nucleic acid amplification. ID Date Data Source [id number] 11/07/2019 08:52:00 AM EDT [facility] spital Procedure Performed By: [facility] [address] [place] [address] Director: Amy Hankins MD Mixed noy: Mixed noy, probable contamination. Name Value Range Interpretation Code Description Data Yoli rce(s) Supporting Document(s) ID Date Data Source [id number] 11/08/2019 03:49:[address] [facility] Name Value Range Interpretation Code Description Data Yoli rce(s) Supporting Document(s) Chlamydia,Urine Negative Normal (applies to non-numeric results) [facility] Test Performed By: [facility] [address] [place] [address] Director: Susana Hankins MD . GC Urine Negative Normal (applies to non-numeric resul ts) [facility] Test Performed By: [facility] [address] [place] [address] Director: Susana Hankins MD . Methodology: Second generation nucleic acid amplification. ID Date Data Source [id number] 11/07/2019 06:30:00 PM EDT [facility] Name Value Range Interpretation Code Description Data Yoli rce(s) Supporting Document(s) Varicella-Zoster IgG Ab,S res See Note No rmal (applies to non-numeric results) [facility] Presence of detectable Varicella Zoster virus IgG antibodies. Test [place] [address] ID Date Data Source [id number] 11/07/2019 06:30:00 PM EDT [facility] Name Value Range Interpretation Code Description Data Yoli rce(s) Supporting Document(s) Amphetamines, UDS7 Dogolm=1725 Normal (applies to non-nume corie results) [facility] Amphetamine test includes Amphetamine an d Methamphetamine. Barbiturates, UDS7 Atuxbu=264 Normal (applies to non-numer ic results) [facility] Benzodiazepines, UDS7 Cpwqkj=821 Normal (applies to non-nu meric results) [facility] Cannabinoid, UDS7 Cutoff=50 Normal (applies to non-numeri c results) [facility] Cocaine, UDS7 Wtageb=937 Normal (applies to non-numeric re sults) [facility] Opiates, UDS7 Nskera=941 Normal (applies to non-numeric re sults) [facility] Opiate test includes Codeine and Morphin e only. Phencyclidine, UDS7 Cutoff=25 Normal (applies to non-nume corie results) [facility] Performed at: RN - [facility] [address] [id number] Cobol Developer: Elizabeth Llanos MD, Phone: [phone] ID Date Data Source [id number] 11/07/2019 06:30:00 PM EDT [facility] Name Value Range Interpretation Code Description Data Yoli rce(s) Supporting Document(s) Toxoplasma Ab,IgG result Negative Normal (applies to non -numeric results) [facility] Toxoplasma IgG Value Normal (applies to non-num hue results) [facility] REFERENCE VALUE------ <=9 IU/mL (Negative) 10-11 IU/mL (Equivocal) >=12 IU/mL (Positive) Test Performed by: [place] [address] Cobol Developer: Robb Hernandez M.D. Ph.D.; CLIA# [id number] ID Date Data Source [id number] 11/07/2019 06:30:00 PM EDT [facility] Name Value Range Interpretation Code Description Data Yoli rce(s) Supporting Document(s) Toxoplasma Ab,IgM Negative Normal (applies to non-numeri c results) [facility] No IgM antibodies to T. gondii detected. Results may be negative in patients with recent infection or who are significantly immunosuppressed. Test Performed by: [place] [address] Cobol Developer: Robb Hernandez M.D. Ph.D.; CLIA# [id number] ID Date Data Source [id number] 11/07/2019 06:25:[address] [facility] Name Value Range Interpretation Code Description Data Yoli rce(s) Supporting Document(s) Varicella-Zoster IgG Ab,S res See Note No rmal (applies to non-numeric results) [facility] Presence of detectable Varicella Zoster virus IgG antibodies. Test performed [place] [address] ID Date Data Source [id number] 11/07/2019 06:25:[address] [facility] Name Value Range Interpretation Code Description Data Yoli rce(s) Supporting Document(s) Toxoplasma Ab,IgG result Negative Normal (applies to non -numeric results) [facility] Toxoplasma IgG Value Normal (applies to non-num hue results) [facility] REFERENCE VALUE------ <=9 IU/mL (Negative) 10-11 IU/mL (Equivocal) >=12 IU/mL (Positive) Test Performed by: [place] [address] Cobol Developer: Robb Hernandez M.D. Ph.D.; CLIA# [id number] ID Date Data Source [id number] 11/07/2019 06:25:[address] [facility] Name Value Range Interpretation Code Description Data Yoli rce(s) Supporting Document(s) Amphetamines,UDS7 Orjyia=5626 Normal (applies to non-numer ic results) [facility] Amphetamine test includes Amphetamine an d Methamphetamine. Barbiturates,UDS7 Wbkkoo=234 Normal (applies to non-numeri c results) [facility] Benzodiazepines,UDS7 Zppllp=419 Normal (applies to non-num hue results) [facility] Cannabinoid,UDS7 Cutoff=50 Normal (applies to non-numeric results) [facility] Cocaine,UDS7 Eiyveh=196 Normal (applies to non-numeric res ults) [facility] Opiates,UDS7 Hsebbm=094 Normal (applies to non-numeric res ults) [facility] Opiate test includes Codeine and Morphin e only. Phencyclidine,UDS7 Cutoff=25 Normal (applies to non-numer ic results) [facility] Performed at: RN - [facility] [address] [id number] Cobol Developer: Elizabeth Llanos MD, Phone: [phone] ID Date Data Source [id number] 11/07/2019 06:25:[address] [facility] Name Value Range Interpretation Code Description Data Yoli rce(s) Supporting Document(s) Toxoplasma Ab,IgM result Negative Normal (applies to non -numeric results) [facility] No IgM antibodies to T. gondii detected. Results may be negative in patients with recent infection or who are significantly immunosuppressed. Test Performed by: [facility] - [address] [address] Cobol Developer: Robb Hernandez M.D. Ph.D.; CLIA# [id number] ID Date Data Source [id number] 11/07/2019 03:18:00 PM EDT [facility] Name Value Range Interpretation Code Description Data Yoli rce(s) Supporting Document(s) Lead,Blood (Venous) result 0.0-4.9 Normal (applies to n on-numeric results) [facility] ADDITIONAL INFORMATIO N Testing performed by Inductively Coupled Plasma-Mass Spectrometry (ICP-MS). This test was developed and its performance characteristics determined by [facility] in a manner consistent with CLIA requirements. This test has not been cleared or approved by the U.S. Food and Drug Administration. PBDV Source (Venous) Normal (applies to non-num hue results) [facility] PBDV Patient Street Normal (applies to non-nume corie results) [facility] RESULT: [address] PBDV Patient [facility] Normal (applies to non-numeri c results) [facility] PBDV Patient State Normal (applies to non-numer ic results) [facility] PBDV Patient Zip [facility] Normal (applies to non-numeric results) [facility] Normal (applies to non-nume corie results) [facility] PBDV Patient Phone [phone] Normal (applies to non-nume corie results) [facility] Race Normal (applies to non-numeri c results) [facility] Patient Ethnicity Normal (applies to non-n umeric results) [facility] Patient Occupation Normal (applies to non- numeric results) [facility] Patient Employer Normal (applies to non-nu meric results) [facility] Guardian Name,First Normal (applies to non -numeric results) [facility] Guardian Name,Last Normal (applies to non- numeric results) [facility] Provider Name Normal (applies to non-numer ic results) [facility] Provider Street Normal (applies to non-num hue results) [facility] Provider [facility] Normal (applies to non-numer ic results) [facility] Provider State Normal (applies to non-nume corie results) [facility] Provider Zip [address] Normal (applies to non-numeri c results) [facility] Phone [phone] Normal (applies to non-num hue results) [facility] Submitting Lab Phone [phone] Normal (applies to non-numeric results) [facility] Test Performed by: [place] [address] Cobol Developer: Robb Hernandez M.D. Ph.D.; IA# [id number] ID Date Data Source [id number] 11/07/2019 02:03:[address] [facility] Name Value Range Interpretation Code Description Data Yoli rce(s) Supporting Document(s) Lead,Blood (Venous) result 0.0-4.9 Normal (applies to n on-numeric results) [facility] ADDITIONAL INFORMATIO N Testing performed by Inductively Coupled Plasma-Mass Spectrometry (ICP-MS). This test was developed and its performance characteristics determined by [facility] in a manner consistent with CLIA requirements. This test has not been cleared or approved by the U.S. Food and Drug Administration. PBDV Source (Venous) Normal (applies to non-num hue results) [facility] PBDV Patient Street Normal (applies to non-nume corie results) [facility] RESULT: [address] PBDV Patient City Normal (applies to non-numeri c results) [facility] PBDV Patient State Normal (applies to non-numer ic results) [facility] PBDV Patient Zip [address] Normal (applies to non-numeric results) [facility] Normal (applies to non-nume corie results) [facility] PBDV Patient Phone [phone] Normal (applies to non-nume corie results) [facility] PBDV Patient Race Normal (applies to non-numeri c results) [facility] Normal (applies to non-n umeric results) [facility] Occupation Normal (applies to non- numeric results) [facility] Employer Normal (applies to non-nu meric results) [facility] Guardian Name,First Normal (applies to non -numeric results) [facility] Guardian Name,Last Normal (applies to non- numeric results) [facility] Name Normal (applies to non-numer ic results) [facility] Normal (applies to non-num hue results) [facility] City Normal (applies to non-numer ic results) [facility] State Normal (applies to non-nume corie results) [facility] PBDV Provider Zip [address] Normal (applies to non-numeri c results) [facility] [facility] Provider Phone [phone] Normal (applies to non-num hue results) [facility] Sub[facility] Phone [phone] Normal (applies to non-numeric results) [facility] Test Performed by: [facility] [address] [place] [address] Cobol Developer: Robb Hernandez M.D. Ph.D.; CLIA# [id number] ID Date Data Source [id number] 11/07/2019 08:20:[address] [facility] [place] Procedure Performed By: [facility] [address] [place] [address] Director: Amy Hankins MD Name Value Range Interpretation Code Description Data Yoli rce(s) Supporting Document(s) Urine Culture Normal (applies to non-numeric re sults) [facility] ID Date Data Source [id number] 11/06/2019 07:11:00 AM EDT [facility] Name Value Range Interpretation Code Description Data Yoli rce(s) Supporting Document(s) TS ABO result Normal (applies to non-numeric resul ts) [facility] TS Rh result Normal (applies to non-numeric result s) [facility] TS ABS result Normal (applies to non-numeric resul ts) [facility] Test Performed By: [facility] [address] [place] [address] Director: Susana Hankins MD ID Date Data Source [id number] 11/06/2019 01:56:[address] [facility] [place] Name Value Range Interpretation Code Description Data Yoli rce(s) Supporting Document(s) TS ABO result Normal (applies to non-numeric re sults) [facility] TS Rh result Normal (applies to non-numeric res ults) [facility] TS ABS result Normal (applies to non-numeric re sults) [facility] Test Performed By: [facility] [address] [place] [address] Director: Susana Hankins MD ID Date Data Source [id number] 11/05/2019 06:44:00 PM EDT [facility] Name Value Range Interpretation Code Description Data Yoli rce(s) Supporting Document(s) Hepatitis C Virus Ab result Nonreactive Norm al (applies to non-numeric results) [facility] Test Performed By: [facility] [address] [place] [address] Director: Susana Hankins MD ID Date Data Source [id number] 11/05/2019 06:45:00 PM EDT [facility] Name Value Range Interpretation Code Description Data Yoli rce(s) Supporting Document(s) Hep Bs Ag result T-Test Nonreactive Normal (applies to non -numeric results) [facility] Test Performed By: [facility] [address] [place] [address] Director: Susana Hankins MD ID Date Data Source [id number] 11/05/2019 06:45:00 PM EDT [facility] Name Value Range Interpretation Code Description Data Yoli rce(s) Supporting Document(s) HIV Screen result Nonreactive Normal (applies to non-numer ic results) [facility] Test Performed By: [place] [address] Director: Susana Hankins MD ID Date Data Source [id number] 11/05/2019 06:45:00 PM EDT [facility] Value Range Interpretation Code Description Data Yoli rce(s) Supporting Document(s) Syphilis Serology result Nonreactive Normal (applies to non-numeric results) [facility] Test Performed By: [place] [address] Director: Susana Hankins MD ID Date Data Source [id number] 11/05/2019 06:45:00 PM EDT [facility] Value Range Interpretation Code Description Data Yoli rce(s) Supporting Document(s) Bupren Screen,Ur wRfx LCI SO Negative Normal (appl ies to non-numeric results) [facility] Test Performed By: [place] [address] Director: Susana Hankins MD Therapeutic Drug Threshold for Buprenorphine: 5 ng/mL All positive findings are presumptive and unconfirmed. Confirmation of positive Buprenorphine is automatically reflexed and sent to reference laboratory. Unconfirmed results must not be used for non- medical purposes (i.e. pre-employment and legal purposes) ID Date Data Source [id number] 11/05/2019 06:45:00 PM EDT [facility] Value Range Interpretation Code Description Data Yoli rce(s) Supporting Document(s) Rubella Ab,IgG result >10.0 Normal (applies to non-nu meric results) [facility] Test Performed By: [place] [address] Director: Susana Hankins MD Interpretation of Results Less than 5.0 IU/mL - Negative for IgG antibodies to Rubella virus 5.0 - 9.9 IU/mL - Equivocal. Suggest repeat testing on new sample 10.0 IU/mL or greater - Positive for IgG antibodies to Rubella virus ID Date Data Source [id number] 11/05/2019 06:02:00 PM EDT [facility] Value Range Interpretation Code Description Data Yoli rce(s) Supporting Document(s) Hep C Ab-T Test Nonreactive Normal (applies to non-numeric results) [facility] Test Performed By: [place] [address] Director: Susana Hankins MD ID Date Data Source [id number] 11/05/2019 06:02:00 PM EDT [facility] Value Range Interpretation Code Description Data Yoli rce(s) Supporting Document(s) HIV 1/2 Ab p24 Ag Screen Nonreactive Normal (applies to non-numeric results) [facility] Test Performed By: [place] [address] Director: Susana Hankins MD ID Date Data Source [id number] 11/05/2019 06:02:00 PM EDT [facility] Value Range Interpretation Code Description Data Yoli rce(s) Supporting Document(s) Hep Bs Ag Result T-Test Nonreactive Normal (applies to non -numeric results) [facility] Test Performed By: [place] [address] Director: Susana Hankins MD ID Date Data Source [id number] 11/05/2019 06:02:00 PM EDT [facility] Name Value Range Interpretation Code Description Data Yoli rce(s) Supporting Document(s) Rubella Ab,IgG >10.0 Normal (applies to non-numeric r esults) [facility] Test Performed By: [facility] [address] [place] [address] Director: Susana Hankins MD Interpretation of Results Less than 5.0 IU/mL - Negative for IgG antibodies to Rubella virus 5.0 - 9.9 IU/mL - Equivocal. Suggest repeat testing on new sample 10.0 IU/mL or greater - Positive for IgG antibodies to Rubella virus ID Date Data Source [id number] 11/05/2019 06:02:00 PM EDT [facility] Value Range Interpretation Code Description Data Yoli rce(s) Supporting Document(s) Syphilis Serology Nonreactive Normal (applies to non-numer ic results) [facility] Test Performed By: [facility] [address] [place] [address] Director: Susana Hankins MD ID Date Data Source [id number] 11/05/2019 05:35:00 PM EDT [facility] Value Range Interpretation Code Description Data Yoli rce(s) Supporting Document(s) Bupren Scrn,Ur wRfx LCI SO res Negative N ormal (applies to non-numeric results) [facility] Test Performed By: [facility] [address] [place] [address] Director: Susana Hankins MD Therapeutic Drug Threshold for Buprenorphine: 5 ng/mL All positive findings are presumptive and unconfirmed. Confirmation of positive Buprenorphine is automatically reflexed and sent to reference laboratory. Unconfirmed results must not be used for non-medical purposes (i.e. pre-employment and legal purposes) ID Date Data Source [id number] 11/05/2019 11:02:00 AM EDT [facility] Value Range Interpretation Code Description Data Yoli rce(s) Supporting Document(s) Thyroid Stimulate Hormone TSH 0.358-3.74 No rmal (applies to non-numeric results) [facility] ID Date Data Source [id number] 11/05/2019 11:02:[address] [facility] Name Value Range Interpretation Code Description Data Yoli rce(s) Supporting Document(s) Beta HCG,Quantitative 519655 mIU/mL Normal (applies to non -numeric results) [facility] Non-preganant:0-5 mIU/mL 0. 2- Week: 5-50 mIU/mL 1-2 Weeks: 50-500 mIU/mL 2-3 Weeks: 100-5,000 mIU/mL 3-4 Weeks: 500-10,000 mIU/mL 4-5 Weeks: 1,000-50,000 mIU/mL 5-6 Weeks: 10,000-100,000 mIU/mL 6-8 Weeks: 15,000-200,000 mIU/mL 2-3 Months: 10,000-100,000 mIU/mL ID Date Data Source [id number] 11/05/2019 10:53:[address] [facility] Name Value Range Interpretation Code Description Data Yoli rce(s) Supporting Document(s) Hemoglobin A1c 4.4-6.2 Normal (applies to non-numeric r esults) [facility] Estimated Avg Glucose 94 mg/dL 126-[address] [facility] ID Date Data Source [id number] 11/05/2019 09:56:[address] [facility] Name Value Range Interpretation Code Description Data Yoli rce(s) Supporting Document(s) White Blood Count 3.5-10.5 Above high normal [facility] Red Blood Count 3.90-5.00 Normal (applies to non-numeric results) [facility] Hemoglobin 12.0-15.5 Normal (applies to non-numeric resul ts) [facility] Hematocrit 34.9-44.5 Normal (applies to non-numeric resul ts) [facility] Mean Corpuscular Volume 81.2-95.1 Above high normal [facility] Mean Corpuscular Hgb 25.6-32.2 Normal (applies to non-num hue results) [facility] Mean Corpuscular Hgb Conc 32.0-36.0 Normal (applies to no n-numeric results) [facility] Red Cell Distribution Width 11.9-15.5 Normal (appli es to non-numeric results) [facility] Platelet Count 355 x10 3/uL 150-450 Normal (applies to non-numeric results) [facility] Mean Platelet Volume 9.4-12.4 Normal (applies to non-num hue results) [facility] Neutrophils% (Auto) 31.0-71.0 Normal (applies to non-nume corie results) [facility] Lymphocytes% (Auto) 20.0-55.0 Normal (applies to non-nume corie results) [facility] Monocytes% (Auto) 4.0-12.0 Normal (applies to non-numeri c results) [facility] Eosinophils% (Auto) 1.0-8.[address] [facility] Basophils% (Auto) 0.0-2.0 Normal (applies to non-numeri c results) [facility] Immature Granulocytes% (Auto) 0.0-2.0 Normal (gen lies to non-numeric results) [facility] Neutrophils# (Auto) 1.50-6.20 Above high normal [facility] Lymphocytes# (Auto) 1.20-4.00 Normal (applies to non-nume corie results) [facility] Monocytes# (Auto) 0.00-0.90 Normal (applies to non-numeri c results) [facility] Eosinophils# (Auto) 0.00-0.50 Normal (applies to non-nume corie results) [facility] Basophils# (Auto) 0.00-0.20 Normal (applies to non-numeri c results) [facility] Immature Granulocytes# (Auto) 0.00-7.00 No rmal (applies to non-numeric results) [facility] ID Date Data Source [id number] 11/05/2019 10:06:00 AM EDT [facility] Imaging Services Department Imaging Report [address] [place] [id number] %(RAD)RES..mtdd.print.filter("line") Name: CHRIS EDWARDS : 1995 Age/Sex: 24F Ordering Provider: JANIS Mcdonough Med Rec #: [id number] Reg Status: REG REF Room #: Date of Service: 11/05/19 Report Number: [id number] cc:JESUS Salinas; JANIS Mcdonough Send Report To: [id number] US/ OB First Trimester Reason for exam: OB FIRST TRIMESTER FINDINGS: LMP: 09-13-19 = EDC 06-09-20 EGA = 7 wks 4 days Earliest U/S Today = EDC 06-19-20 EGA= 7 wks 4 days Gestation: Single. 1. Gestational sac size: 43.0 x 18.8 x 27.1 mm = 29.6 mm AVw 1d. 2. [place] Rump Length: 12.9 mm. 3. Heart Rate: 152 bpm. 4. Placental Location: Undetermined. 5. Presentation: Undetermined. 6. Regular Shaped Gestational Sac: Yes 7. Adequate Amniotic Fluid: Yes 8. Yolk Sac: Yes 9. Cervical length: 39.7 mm. 10. Uterus measures 7.7 x 4.2 x 5.8 cm. 11. Right ovary measures 3.0 x 1.8 x 3.3 cm. 12. Left ovary measures 2.3 x 1.2 x 2.5 cm. 13. No free fluid or torsion is identified. 14. No evidence of a bleed is identified. IMPRESSION: Single, live intrauterine gestation 7w 4d. EDC 06-19-20. REPORT DICTATED BY CHICA CHAIDEZ, REVIEWED AND SIGNED BY DR. GROVER REPORT SIGNATURE ON FILE Reported By: Chica Grover MD <Electronically signed by Robel Grover MD> 11/05/19 1014 Dictation Date/Time: 11/05/19 0945 Transcribed Date/Time: 11/05/19 1006 [employer] And [employer] Inspector: [place] Name Value Range Interpretation Code Description Data Yoli rce(s) Supporting Document(s) ID Date Data Source [id number] 09/26/2019 02:23:00 PM EDT [facility] COVID-19 Specimen Source NASOPHARYNGEAL Is Patient admitted or to be admitted? N Name Value Range Interpretation Code Description Data Yoli rce(s) Supporting Document(s) SARS-CoV-2 RNA Normal (applies to non-numeric r esults) [facility] 2019-novel Coronavirus (2019-nCoV) not d etected by the qRT-PCR assay. Consider testing for other respiratory viruses or re-collecting for 2019-nCoV testing. Note: Optimum timing for peak viral levels during infections caused by 2019- nCoV have not been determined. Collection of multiple specimens from the same patient may be necessary to detect the virus. [facility] Test [place] [address] Performing Lab Normal (applies to non-numeric r esults) [facility] ID Date Data Source [id number] 09/25/2019 05:40:[address] [facility] COVID-19 Specimen Source NASOPHARYNGEAL Is Patient admitted or to be admitted? N Name Value Range Interpretation Code Description Data Yoli rce(s) Supporting Document(s) SARS-CoV-2 RNA Negative Normal (applies to non-numeric r esults) [facility] 2019-novel Coronavirus (2019-nCoV) not d etected by the qRT-PCR assay. Consider testing for other respiratory viruses or re-collecting for 2019-nCoV testing. Note: Optimum timing for peak viral levels during infections caused by 2019- nCoV have not been determined. Collection of multiple specimens from the same patient may be necessary to detect the virus. Performing Lab Normal (applies to non-numeric r esults) [facility] Is Patient Admitted or Awaiting Admissio n?:N COVID-19 Specimen Source: CORK GRINDER NOTE: RESULTS HAVE BEEN REFORMATTED PLEASE REVIEW RESULTS CAREFULLY THE LOCATION OF INFORMATION MAY HAVE CHANGED Test performed or referred by The [address] [address] ID Date Data Source [id number] 09/23/2019 12:00:00 AM EDT [facility] Name Value Range Interpretation Code Description Data Yoli rce(s) Supporting Document(s) SARS coronavirus 2 RNA:PrThr:Pt:XXX:Ord:Probe.amp.tar [facility] This lab [facility] and reported by [facility]. Procedure Social History Code Duration Value Status Description Data Source(s ) Smoking 07/09/2020 12:00:00 AM EST Patient has never smoked co mpleted Patient has never smoked [facility] ([facility]) Vital Signs ID Date Data Source UNK Name Value Range Interpretation Code Description Data Source(s) Diastolic blood pressure--sitting 71 mm[Hg] 71 mm[Hg] [facility] ([facility]) Omron, adult cuff/Ra Systolic blood pressure--sitting 113 mm[Hg] 113 mm[Hg] [facility] ([facility]) Omron, adult cuff/Ra Heart rate 74 /min 74 /min [facility] Body mass index (BMI) [Ratio] 30.2 kg/m2 30.2 k g/m2 [facility] ([facility]) Body height 62 [in_i] 62 [in_i] [facility]) 5'2" Body weight 165.00 [lb_av] 165.00 [lb_av] [facility] T ([facility]) ID Date Data Source [id number] 05/16/2020 12:09:59 PM [facility] Name Value Range Interpretation Code Description Data Source(s) TRANSFER FROM [facility] ID Date Data Source [id number] 05/17/2020 10:16:00 AM [facility] Name Value Range Interpretation Code Description Data Source(s) Weight [address] [facility] Height [address] [facility] ID Date Data Source [id number] 01/23/2020 03:58:00 AM EDT [facility] Name Value Range Interpretation Code Description Data Source(s) Weight Measurement Method 8 8 [facility] Weight 2528 2528 [facility] pital Temperature Source 7 7 [facility] Temperature 97.5 97.5 [facility] spital Respiratory Effort 1 1 [facility] Respiratory Rate 18 18 [facility] Pulse Assessment Method 4 4 [facility] Rate 74 74 [facility] 118/76 118/76 [facility] Weight Measurement Method 8 8 [facility] Weight 2528 2528 [facility] pital Temperature Source 7 7 [facility] Temperature 97.5 97.5 [facility] spital Respiratory Effort 1 1 [facility] Respiratory Rate 18 18 [facility] Pulse Assessment Method 4 4 [facility] Pulse Rate 74 74 [facility] Pressure 118/76 118/76 [facility] Weight Measurement Method 8 8 [facility] Weight 2528 2528 [facility] pital Temperature Source 7 7 [facility] Temperature 97.5 97.5 [facility] spital Respiratory Effort 1 1 [facility] Respiratory Rate 18 18 [facility] Pulse Assessment Method 4 4 [facility] Pulse Rate 76 76 [facility] Blood Pressure 118/72 118/72 [facility]
--- OUTSIDE RECORDS SUMMARY | 2020-07-11 17:11 | CCD | Continuity of Care Document ---
Author Author Chinedu PARMAR MD Organization Unknown Address [address] [facility] [place] [address] Phone [phone] Care Team Providers Care Score Caller Name Role Phone She Gomes AUTM [phone] Problems Active Problems Provider Date Chest pain Flaco Parmar MD Onset: 07/09/2020 Acute diastolic heart failure Flaco Parmar MD Onset: Acute subendocardial infarction Flaco Parmar MD Onset: 07/09/2020 Dietary management surveillance Flaco Parmar MD Onset: 07/09/2020 Obesity Flaco Parmar MD Onset: 07/09/2020 Social History Type Date Description Comments Sex Unknown ETOH Use Does not consume alcohol Tobacco Use Start: Unknown Patient has never smoked Smoking Status Reviewed: 07/09/20 Patient has never smoked Exercise Type/Frequency [employer]back Riding few marya es weekly Exercise Limitations None Allergies, Adverse Reactions, Alerts Description No Known Drug Allergies Medications Description No Active Medications Immunizations Description No Information Available Vital Signs Date Vital Result Comment 07/09/2020 12:35pm Weight 165.00 lb Height 62 inches 5'2" BMI (Body Mass Index) 30.2 kg/m2 Heart Rate 74 /min BP Systolic Sitting 113 mmHg Omron, adult cuff/Ra BP Diastolic Sitting 71 mmHg Omron, adult cuff/R a Results Test Acquired Date Facility Test Result H/L Range Note CMP 05/16/2020 [facility] - not interfaced (064)- - Albumin Serum/Plasma 1.8 Alt - SGPT 16 Calcium Ser/Plasma Mass/Vol 8.2 Carbon Dioxide Ser/Plasm 23 Chloride Serum/Plasma 110 Alkaline Phosphatase 104 Potassium 3.6 Protein Total 4.7 Sodium 142 Ast - Sgot 35 BUN - Urea Nitrogen 8 Glucose 84 70-100 Creatinine For GFR 0.89 Laboratory test finding 05/16/2020 [facility] - not interf aced (315)- - Magnesium Level 1.7 Low 1.8-2.4 Troponin 0.98 High <0.10 NT Probnp QN Ser/Plas 3071 High <125 Ferritin 64 0-252 C-Reactive Protein 9.55 High 0.00-0.30 CBC without Differential 05/16/2020 [facility] - not inter faced (315)- - White Blood Count 16.3 High 4.0-10.0 Red Blood Count 3.26 Low 4.00-5.40 Platelets 227 150-450 Hemoglobin 10.4 Hematocrit 31.5 Procedures Date Code Description Status 07/09/2020 96191 ECG 12-Lead Completed Medical Devices Description No Information Available Encounters Type Date Location Provider Dx Diagnosis Office Visit 07/09/2020 12:30p Main Office Flaco Parmar MD I50.3 1 Acute diastolic (congestive) heart failure I21.4 Non-St elevation (Nstemi) my ocardial infarction R07.9 Chest pain, unspecified E66.09 Other obesity due to excess calories Z71.3 Dietary counseling and surve illance Assessments Date Code Description Provider 07/09/2020 I50.31 Acute diastolic (congestive) hea rt failure Flaco Parmar MD 07/09/2020 I21.4 Non-St elevation (Nstemi) myocar dial infarction Flaco Parmar MD 07/09/2020 R07.9 Chest pain, unspecified Flaco Parmar MD 07/09/2020 E66.09 Other obesity due to excess felix alexis Flaco Parmar MD 07/09/2020 Z71.3 Dietary counseling and surveilla nce Flaco Parmar MD Plan of Treatment Future Appointment(s):* 08/04/2020 11:20 am - Stress Nuclear/Reg Treadmill at Main Office 07/09/2020 - Flaco Parmar MD* I50.31 Acute diastolic (congestive) heart failure * I21.4 Non-St elevation (Nstemi) myocardial infarction* New Orders:* Treadmill, Ordered: 07/09/20 * R07.9 Chest pain, unspecified * E66.09 Other obesity due to excess calories * Z71.3 Dietary counseling and surveillance * All * New Medication:* No Active Medications - * Follow up:* Further follow-up, if any, depending upon results of cardiac testing. Functional Status Functional Condition Comment Date Status Independent with all ADL's Activ e Mental Status Description No Information Available Referrals Description No Information Available
--- OUTSIDE RECORDS SUMMARY | 2020-07-11 17:11 | CCD | Summary of Care ---
Demographics Preferred Language Unknown Marital Status Unknown Uatsdin Affiliation Unknown Race Unknown Ethnic Group Unknown Author Author [facility] Address Unknown Phone Unavailable Care Team Providers Care Lead Sprinkler Name Role Phone PCP Unavailable Encounter Details Care Team Description Date Type Department 05/16/2020 [facility] TRANSFER CE NTER Encounter [address] [place] [address] Allergies Not on Filedocumented as of this encounter (statuses as of 05/31/2020) Medications Not on filedocumented as of this encounter (statuses as of 05/31/2020) Active Problems Not on filedocumented as of this encounter (statuses as of 05/31/2020) Social History Date Tobacco Use Types Packs/Day Years Used Never Assessed Sex Assigned at Date Recorded Not on file Date Recorded COVID-19 Exposure Response 05/16/2020 12:09 PM EST In the last month, have you been in contact with No / Unsure someone who was confirmed or suspected to have Coronavirus / COVID-19? documented as of this encounter Last Filed Vital Signs Not on filedocumented in this encounter Plan of Treatment Health Maintenance Due Date Last Done Comments MMR Vaccines (1 of - 1998 Standard series) Varicella Vaccines (1 of 1998 2 - 2-dose childhood series) DTaP,Tdap,and Td Vaccines 2004 (1 - Tdap) HPV Vaccines (1 - 2-dose 2008 series) HIV Screening 2010 Chlamydia Screening 2013 Cervical Cancer Screening 2018 3 years Influenza Vaccine 02/20/2020 Pneumococcal Vaccine: 65+ 2062 Years (1 of 1 - PPSV23) HIB Vaccines Aged Out No longer eligible based on patient's age to complete this topic Hepatitis A Vaccines Aged Out No longer eligibl e based on patient's age to complete this topic Hepatitis B Vaccines Aged Out No longer eligibl e based on patient's age to complete this topic IPV Vaccines Aged Out No longer eligible based on patient's age to complete this topic Pneumococcal Vaccine: Aged Out No longer eligib le based on patient's age to Pediatrics (0 to 5 Years) complete this topic and At-Risk Patients (6 to 64 Years) documented as of this encounter Results Not on filedocumented in this encounter
== END 2020-07-11 17:23 | disposition home or self-care (01) ==
LOC: M ED 16:34
DX: S83.412A Sprain of medial collateral ligament of left knee, initial encounter (principal); Y92.838 Other recreation area as the place of occurrence of the external cause; Y93.23 Activity, snow (alpine) (downhill) skiing, snowboarding, sledding, tobogganing and snow tubing; Y99.9 Unspecified external cause status; Z87.828 Personal history of other (healed) physical injury and trauma

== ENCOUNTER → 2024-08-20 | Outpatient (CLI) | payer OTHER ==
[~2024-08-20] MED LIST changes: +CLOP75TA99 PO; -PLAV1TAB2 PO
[2024-08-20 14:25] LABS: BASO # 0.1 10^3/uL (0.0-0.2); BASO % 0.7 % (0.0-1.0); EOS # 0.3 10^3/uL (0.0-0.5); EOS % 2.7 % (0.0-3.0); HEMATOCRIT 40.7 % (36.0-47.0); HEMOGLOBIN 13.5 g/dl (12.0-15.5); MEAN CORPUSCULAR HEMOGLOBIN 31.8 pg (27.0-33.0); MEAN CORPUSCULAR HGB CONC 33.2 g/dl (32.0-36.5); MONO # 0.5 10^3/uL (0.0-0.8); MONO % 5.8 % (2.0-8.0); NEUTROPHILS # 5.2 10^3/uL (1.5-8.5); NEUTROPHILS % 57.4 % (36.0-66.0); PLATELET COUNT, AUTOMATED 353 10^3/uL (150-450); RED BLOOD COUNT 4.24 10^6/uL (4.00-5.40); WHITE BLOOD COUNT 9.1 10^3/uL (4.0-10.0)
[2024-08-20 14:29] LABS: APPEARANCE, URINE CLEAR (CLEAR); BACTERIA, URINE AUTO NEGATIVE (NEGATIVE); BILIRUBIN, URINE AUTO NEGATIVE (NEGATIVE); BLOOD, URINE BLOOD NEGATIVE (NEGATIVE); COLOR, URINE YELLOW (YELLOW); GLUCOSE, URINE (UA) AUTO NEGATIVE (NEGATIVE); KETONE, URINE AUTO NEGATIVE (NEGATIVE); LEUKOCYTE ESTERASE, URINE AUTO NEGATIVE (NEGATIVE); NITRITE, URINE AUTO NEGATIVE (NEGATIVE); PROTEIN, URINE AUTO NEGATIVE (NEGATIVE); RBC, URINE AUTO 2 /HPF (0-3); SQUAMOUS EPITHELIAL CELL UR AU 2 /HPF (0-6); UROBILINOGEN, URINE AUTO 0.2 mg/dL (0.0-2.0); WBC, URINE AUTO 3 /HPF (0-3)
[2024-08-20 14:53] LABS: ALBUMIN 3.9 G/DL (3.2-5.2); ALKALINE PHOSPHATASE 87 U/L (35-104); ALT/SGPT 15 U/L (7.0-40); AST/SGOT 13 U/L (<34); BILIRUBIN,TOTAL 0.4 MG/DL (0.3-1.2); BLOOD UREA NITROGEN 12 MG/DL (9-23); CALCIUM LEVEL 9.9 MG/DL (8.5-10.1); CARBON DIOXIDE LEVEL 30 MMOL/L (20-31); CHLORIDE LEVEL 105 MMOL/L (98-107); CREATININE FOR GFR 0.87 MG/DL (0.55-1.30); GLOMERULAR FILTRATION RATE > 60.0 (>60); GLUCOSE, FASTING 109 MG/DL (60-100); SODIUM LEVEL 142 MMOL/L (136-145); TOTAL PROTEIN 7.5 G/DL (5.7-8.2)
== END ==
LOC: M LAB 13:47
PROVIDERS: ATTEND Nurse Practitioner Adult Health
DX: Z00.00 Encounter for general adult medical examination without abnormal findings (principal)